=== PATIENT | female | born 1950 | race Caucasian/White ===

== ENCOUNTER → 2019-11-11 14:38 | Outpatient (CLI) | payer BC, SELFPAY ==
--- NOTE | 2019-11-11 14:45 | RAD_ITS ---
STUDY: X-RAY - LUMBAR SPINE REASON FOR EXAM: Female, 69 years old. PAIN LEFT HIP AND LOWER BACK, NKI TECHNIQUE: 3 view(s) of the lumbar spine were obtained. COMPARISON: None FINDINGS: Normal lumbar lordosis. There is no substantial scoliosis. 5 mm of anterolisthesis of L4 on L5. There is multilevel endplate spondylosis of the lumbar vertebrae. There is multi-level degenerative disc disease with multi-level disc space narrowing. Mild loss of height of the L2 vertebral body consistent with a mild compression fracture. This may be acute or chronic and clinical correlation and/or MRI would be useful. The soft tissue structures are unremarkable. RAD/Lumbar Spine 2 or 3 Views IMPRESSION: 1. Mild compression fracture of L2 which may be acute or chronic and clinical correlation or MRI is recommended. 2. Mild diffuse degenerative disc disease with 5 mm of anterolisthesis of L4 on L5. Electronically Signed: Lucas March MD at 9:02 EST Tel , Service support ,
--- NOTE | 2019-11-11 14:50 | RAD_ITS ---
STUDY: X-RAY - PELVIS AND LEFT HIP REASON FOR EXAM: Female, 69 years old. PAIN LEFT HIP AND LOWER BACK, NKI TECHNIQUE: 3 views of the pelvis and hip. COMPARISON: None. FINDINGS: There is a non-specific bowel gas pattern. Normal visualized soft tissue structures. Normal bilateral iliac wings, sacroiliac joints and visualized sacrum. Normal bilateral superior and inferior pubic rami. Normal pubic symphysis. Normal bilateral ischial tuberosities. Normal visualized femoral head. Normal acetabulum. Normal hip joint. RAD/HIP, UNI W/ Pelvis 2-3 Views IMPRESSION: Normal x-ray examination of the pelvis and hip. Electronically Signed: Lucas March MD at 9:04 EST Tel , Service support ,
== END ==
PROVIDERS: PCP Family Medicine; Referring Provider Anesthesiology Pain Medicine; Visit Provider Anesthesiology Pain Medicine
DX: M25.559 Pain in unspecified hip (principal); M54.9 Dorsalgia, unspecified
CPT/HCPCS: 72100; 73502

== ENCOUNTER → 2021-04-20 15:57 | Outpatient (CLI) | payer MEDICARE, SELFPAY ==
--- NOTE | 2021-04-20 16:28 | RAD_ITS ---
STUDY: X-RAY - THORACIC SPINE REASON FOR EXAM: Female, 71 years old. BACK PAIN TECHNIQUE: 3 view(s) of the thoracic spine were obtained. COMPARISON: None. FINDINGS: There is an increase in the normal thoracic kyphosis. There is no substantial scoliosis. There is demineralization of the thoracic spine with endplate spondylosis. 10% loss of height of the T10 vertebrae. There is multilevel disc space narrowing of the thoracic spine. Atherosclerotic calcification of the aortic arch. RAD/Thoracic Spine 2 Views IMPRESSION: Demineralization and degenerative changes. 10% loss of height of the superior endplate of the T10 vertebrae. Electronically Signed: Rene Talbert MD at 15:29 EDT , Service support ,
== END ==
PROVIDERS: PCP Family Medicine; Referring Provider Anesthesiology Pain Medicine; Visit Provider Anesthesiology Pain Medicine
DX: M54.9 Dorsalgia, unspecified (principal)
CPT/HCPCS: 72070

== ENCOUNTER → 2021-06-16 13:26 | Outpatient (CLI) | payer MEDICARE, SELFPAY ==
[2021-06-16 16:23] LABS: Amphetamine Urine VISTA NEGATIVE (<1000 ng/mL); Barbiturate Urine VISTA NEGATIVE (< 200 ng/mL); Benzodiazepine Urine VISTA NEGATIVE (< 200 ng/mL); Cocaine Urine VISTA NEGATIVE (< 300 ng/mL); Ecstacy Urine VISTA NEGATIVE (< 500 ng/mL); Methadone Urine VISTA NEGATIVE (< 300 ng/mL); PCP Urine VISTA NEGATIVE (< 25 ng/mL); THC Urine VISTA NEGATIVE (< 50 ng/mL); Vista UDS pH Range 7
== END ==
PROVIDERS: PCP Family Medicine; Referring Provider Anesthesiology Pain Medicine; Visit Provider Anesthesiology Pain Medicine
DX: F11.20 Opioid dependence, uncomplicated (principal)
CPT/HCPCS: 80307

== ENCOUNTER 2021-08-25 10:04 | Emergency (ER) | payer MEDICARE, SELFPAY ==
[2021-08-25 10:05] VITALS: BP 130/54; PULSE 55; RESP 16; TEMP 36.6; O2SAT 95; BMI 26.4
--- NOTE | 2021-08-25 10:16 | ED.RN ---
[facility] CALLED TO FAX PRESCRITION LIST
--- NOTE | 2021-08-25 10:26 | EKG12_ITS ---
Test Reason : CHEST PAIN Blood Pressure : / mmHG Vent. Rate : 058 BPM Atrial Rate : 058 BPM P-R Int : 130 ms QRS Dur : 080 ms QT Int : 404 ms P-R-T Axes : 044 018 034 degrees QTc Int : 396 ms Sinus bradycardia Otherwise normal ECG Confirmed by REBA PARRA, INGRIS ([id number]), non linear editor ALLISON MELENDEZ ([id number]) on 08/30/2021 1:07:13 P M Referred By: ABRIL Confirmed By:ZACKERY BRITTON MD
--- NOTE | 2021-08-25 10:26 | EKG12_ITS ---
Test Reason : CHEST PAIN Blood Pressure : / mmHG Vent. Rate : 057 BPM Atrial Rate : 057 BPM P-R Int : 130 ms QRS Dur : 076 ms QT Int : 406 ms P-R-T Axes : 045 012 028 degrees QTc Int : 395 ms Sinus bradycardia Otherwise normal ECG When compared with ECG of 17-JUN-2013 10:47, No significant change was found Confirmed by RAGHAVENDRA PARRA, JEANNETTE ([id number]), editor greeting card ALLISON MELENDEZ ([id number]) on 08/31/2021 2:02:05 PM Referred By: ABRIL Confirmed By:JEANNETTE MABRY MD
--- NOTE | 2021-08-25 10:48 | EDS_ITS ---
HPI History of Present Illness Chief Complaint: Back Informant: patient Onset/Context/Timing Onset: Yesterday Injury: bending Timing: Continuous Quality: Sharp Location: Lumbar Current Severity: Mild Maximum Severity: Moderate Worsened by: improves with Movement Relieved by: Nothing Associated Symptoms Associated Symptoms: Negative for Numbness, Tingling, Radiation to Right Leg, Radiation to Left Leg, Fever, Abdominal Pain, Dysuria, Unable to Ambulate, Unable to Transfer, Urinary Retention, Urinary Incontinence, Constipation and Fecal Incontinence Narrative Narrative: 71-year-old female history of compression fractures. Sees Dr. Gallego for chronic pain management, osteoporosis and arthritis. States she was in the shower yesterday and lifted her leg and felt a pop in her lower back. Now having pain over her left iliac crest region. No falls or trauma. She denies any numbness, weakness bowel or bladder incontinence or retention. No fever. She is on no blood thinners. Prior similar symptoms: Yes Recent Illness/Hospitalization: No PFSH PFSH Medical History Osteoporosis Home Medications atorvastatin 10 mg PO DAILY 08/25/21 [History Last Taken Unknown] hydrochlorothiazide 25 mg PO DAILY 08/25/21 [History Last Taken Unknown] magnesium oxide 400 mg PO DAILY 08/25/21 [History Last Taken Unknown] oxycodone-acetaminophen 1 tab PO BID PRN 08/25/21 [History Last Taken Unknown] Allergy/AdvReac Type Severity Reaction Status Date / Time acetaminophen [From Vicodin] Allergy PALPITATION Verified 08/25/21 10:09 S codeine Allergy PALPITATION Verified 08/25/21 10:09 S hydrocodone [From Vicodin] Allergy PALPITATION Verified 08/25/21 10:09 S hydromorphone [From Dilaudid] AdvReac PALPITATION Verified 08/25/21 11:38 S Social History Smoking Status: Current every day smoker tobacco type: cigarettes ROS ROS ED ROS Narrative Denies recent illness. Review of Systems ROS Unobtainable: Denies due to encephalopathy Constitutional Constitutional ED: Denies chills or fever(s) Eyes Eyes: Denies change in vision ENT ENT ED: Denies ear pain or sore throat Cardiovascular Cardiovascular: Denies chest pain Respiratory/Chest Respiratory/Chest: Denies dyspnea or sputum Gastrointestinal Gastrointestinal: Denies abdominal pain, diarrhea, nausea or vomiting Genitourinary Genitourinary ED: Denies dysuria Musculoskeletal Musculoskeletal: Reports back pain; Denies myalgias Integumentary Denies rash Neurologic Neurologic: Denies headache(s) Psychiatric Psychiatric: Denies depression Endocrine Endocrinology: Denies polyuria Hematologic/Lymphatic Hematologic/Lymphatic: Denies easy bruising Allergic/Immunologic Allergic/Immunologic ED: Denies urticaria EXAM Physical Exam Narrative Exam Narrative: Female vital signs stable afebrile. No distress. HEENT exam unremarkable. Neck nontender no lymphadenopathy. Lungs clear to auscultation bilaterally. Heart regular rhythm no murmur. Abdomen soft nontender normal bowel sounds no peritoneal signs. No pulsatile mass. Moving all 4 extremities. Neurovascular intact. 5-5 medical practice manager strength. Dorsi plantarflexion intact. She can lift either leg off the bed without any difficulty. There is no cauda equina. No saddle anesthesia. Negative straight leg raise. She has normal medial thigh sensation. Normal dorsi plantarflexion 5 out of 5 motor strength. Back spine is nontender she has tenderness over her right iliac crest. Neurologically she is awake alert with no focal motor or sensory deficits. Normal motor strength. Const Vital Signs: 08/25/21 10:05 08/25/21 12:18 Temperature 97.9 F Temperature Source Oral Pulse Rate 55 L 58 L Respiratory Rate 16 16 Blood Pressure 130/54 H 96/42 L Blood Pressure Mean 79 60 Pulse Ox 95 94 Oxygen Delivery Method Room Air Room Air Positive well nourished and well developed; Negative for obese, cachectic, contractures or unkempt General Appearance ED: well developed and NAD; Negative for unkempt, cachectic, contractures or pallor Nutritional Appearance: Negative for cachectic or obese HEENT Reports moist mucous membranes Negative for trauma or tenderness Eyes PERRL and EOMs intact bilaterally Neck no lymphadenopathy, supple and no JVD General: Negative for tenderness Resp normal respiratory effort and clear to auscultation bilaterally Effort and Inspection: Negative for pain with movement or other Auscultation: Negative for rales or rhonchi Cardio regular rate, regular rhythm, S1 normal heart sound, S2 normal heart sound and no murmurs GI normal to inspection, nondistended, normoactive bowel sounds, soft to palpation, non-tender, non-distended and no masses Inspection: Negative for abdominal distention Auscultation: Negative for hyperactive bowel sounds Palpation: Negative for tender, guarding or rebound tenderness present Back/Spine normal to inspection and no thoracic nor lumbar tenderness General Back: Negative for CVA tenderness or scar(s) Cervical Spine: Negative for cervical spine tenderness and Negative for paracervical muscle tenderness Thoracic Spine / Upper Back: Negative for paraspinal muscle tenderness Lumbar Spine / Lower Back: straight leg raise negative bilaterally; Negative for straight leg raise positive right Extremity normal to inspection General Extremety ED: Negative for edema or tenderness General Extremity: Negative for edema Psych mental status grossly normal Appearance: Negative for unkempt Attitude: No agitated Mood & Affect: Negative for depressed or tearful Skin no rashes or lesions noted and no wounds General Skin Exam: Negative for jaundice or pallor MDM MDM MDM Narrative Medical decision making narrative: 71-year-old female complaint low back pain. She is neurovascularly intact with normal motor strength sensation both upper and lower extremities. No cauda equina. She will be treated with morphine IV and Zofran. X-ray of her lumbar spine will be obtained. Nurses obtain EKG this patient was chaining of chest discomfort after she was treated with pain meds by the squad. She states this is happened before. This does not sound cardiac in nature. Repeat exam at 1:53 PM. Patient doing well. Much improved. She is comfortable being discharged home. Radiography Diagnostic Testing: Clinical Impression(s) from Imaging Studies Lumbar Spine X-Ray 08/25/21 11:10 IMPRESSION: Degenerative changes of the spine, as detailed above. Stable loss of height of the superior endplate of the L2 vertebrae. Electronically Signed: Rene Talbert MD at 12:06 EST , Service support , LS-spine x-ray interpreted by myself and radiologist shows chronic changes of the lumbar spine. Chronic left-sided L2 but no acute process. Rhythm Strip Rhythm Strip: Sinus Rhythm Rate: 58 Ectopy: None EKG Initial EKG: Attestation: I personally reviewed and interpreted this EKG as follows: Interpretation: No Acute Injury Pattern and Sinus Bradycardia Comments: Sinus bradycardia rate of 58 no acute signs of IL or ischemia. Discharge Plan Triage Chief Complaint: Back ED Provider: Tom Zamora Dx/Rx/DC Orders Clinical Impression: Acute exacerbation of chronic low back pain, Compression fx, lumbar spine Instructions: ED Chronic Pain Prescriptions: No Action atorvastatin 10 mg tablet 10 mg PO DAILY RF: 0 oxycodone-acetaminophen 5-325 mg tablet 1 tab PO BID PRN (Reason: Pain) RF: 0 magnesium oxide 400 mg (241.3 mg magnesium) tablet 400 mg PO DAILY RF: 0 hydrochlorothiazide 25 mg tablet 25 mg PO DAILY RF: 0 Primary Care Provider: Bart Waters Referrals: Lisa Gallego MD [STAFF PHYSICIAN] - 3-5 Days if not improving Bart Waters MD [Primary Care Provider] - 3-5 Days if not improving Activity Restrictions/Additional Instructions: Continue your pain medications at home. Follow-up with your primary care physician or Dr. Gallego in the next several days if not improving. Return emergency department if feeling worse. Disposition Disposition: Home, Self Care
--- NOTE | 2021-08-25 11:10 | RAD_ITS ---
STUDY: X-RAY - LUMBAR SPINE REASON FOR EXAM: Female, 71 years old. Atraumatic pain TECHNIQUE: 5 view(s) of the lumbar spine were obtained. COMPARISON: Comparison is made with prior study dated 11/11/2019. FINDINGS: Normal lumbar lordosis. There is no substantial scoliosis. There is a normal alignment of the vertebrae. There is multilevel endplate spondylosis of the lumbar vertebrae. There is multi-level degenerative disc disease with multi-level disc space narrowing. Facet joint osteoarthritis. Stable loss of height of the superior endplate of the L2 vertebra. There is atherosclerotic calcification of the abdominal aorta without a demonstrated aneurysm. RAD/L/S Spine Min 4 Views IMPRESSION: Degenerative changes of the spine, as detailed above. Stable loss of height of the superior endplate of the L2 vertebrae. Electronically Signed: Rene Talbert MD at 12:06 EST , Service support ,
[2021-08-25] MEDS: morphine 8 MG/ML Syringe 6 MG IV (11:35)
[2021-08-25] MEDS: Ondansetron 4 MG/2 ML Vial IV (11:36)
[2021-08-25 12:18] VITALS: BP 96/42; PULSE 58; RESP 16; O2SAT 94
[2021-08-25 14:09] VITALS: BP 108/57; PULSE 57; RESP 16; O2SAT 95
== END 2021-08-25 14:10 | disposition home or self-care (01) ==
PROVIDERS: Emergency Provider Emergency Medicine; PCP Family Medicine
DX: M54.50 Low back pain, unspecified (principal); G89.29 Other chronic pain; M48.56XA Collapsed vertebra, not elsewhere classified, lumbar region, initial encounter for fracture; M47.816 Spondylosis without myelopathy or radiculopathy, lumbar region; F17.210 Nicotine dependence, cigarettes, uncomplicated; Z79.899 Other long term (current) drug therapy; M81.0 Age-related osteoporosis without current pathological fracture
CPT/HCPCS: 72110; 93005; 96374; 96375; 99285; A4216; J2405

== ENCOUNTER 2021-09-01 21:41 | Emergency (ER) | payer MEDICARE, SELFPAY ==
[2021-09-01 21:42] VITALS: BP 137/70; PULSE 74; PULSE 76; RESP 18; RESP 19; TEMP 37.1; O2SAT 94; BMI 26.4
--- NOTE | 2021-09-01 22:14 | EX.ED.DYSGE1 ---
HPI History of Present Illness Chief Complaint: Back Informant: patient Narrative Narrative: Patient presents with back pain. She does have a long history of osteoporosis and back pain. Until 3 weeks ago she took a total of 1 oxycodone tablet a day. She will take half in the morning and half in the evening. I think these were 5 mg. 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 She has had increasing pain since then. She was seen here about a week ago. X-rays were done. These showed a stable prior compression fracture. She was treated with meds here and improved. She did follow-up with her pain management physician. She sees Dr. Gallego. She is now taking oxycodone tablet 1 every 6 hours. She states is just not controlling her pain. Her pain is mostly right buttock that wraps around the lateral aspect of the right thigh and then comes to the anterior thigh but stops well above her knee. She does not have weakness. She has no bowel or bladder dysfunction. No saddle anesthesia. No fevers or chills. She has had no repeat injury or fall. Earlier today she had an injection done. She states it did improve the symptoms slightly but only for about an hour. Now the pain is back again. She states she has not gotten much sleep in 8 days because of this significant pain. Nothing consistently makes it better or worse. [facility] Medical History HLD (hyperlipidemia) HTN (hypertension) Osteoporosis Home Medications atorvastatin 10 mg PO DAILY 08/25/21 [History Last Taken Unknown] hydrochlorothiazide 25 mg PO DAILY 08/25/21 [History Last Taken Unknown] magnesium oxide 400 mg PO DAILY 08/25/21 [History Last Taken Unknown] metoprolol tartrate 50 mg PO DAILY 09/01/21 [History Last Taken Unknown] omeprazole 20 mg PO DAILY 09/01/21 [History Last Taken Unknown] oxycodone-acetaminophen 1 tab PO Q6H PRN 09/01/21 [History Last Taken Unknown] sertraline 50 mg PO DAILY 09/01/21 [History Last Taken Unknown] diazepam [Valium] 2 mg PO TID PRN 3 Days #9 tab 09/02/21 [Rx Last Taken Unknown] Allergy/AdvReac Type Severity Reaction Status Date / Time acetaminophen [From Vicodin] Allergy PALPITATION Verified 09/01/21 21:41 S codeine Allergy PALPITATION Verified 09/01/21 21:41 S hydrocodone [From Vicodin] Allergy PALPITATION Verified 09/01/21 21:41 S hydromorphone [From Dilaudid] AdvReac PALPITATION Verified 09/01/21 21:41 S Surgical History History of appendectomy History of cholecystectomy History of hysterectomy History of left nephrectomy History of tonsillectomy Social History Smoking Status: Current every day smoker tobacco type: cigarettes ROS ROS ED Constitutional Constitutional ED: Denies chills or fever(s) ENT ENT ED: Denies rhinorrhea Cardiovascular Cardiovascular: Denies chest pain or palpitations Respiratory/Chest Respiratory/Chest: Denies cough or dyspnea Gastrointestinal Gastrointestinal: Denies abdominal pain, constipation, diarrhea, nausea or vomiting Genitourinary Genitourinary ED: Denies dysuria, hematuria or urinary frequency Musculoskeletal Musculoskeletal: Reports back pain; Denies neck pain Integumentary Denies rash Neurologic Neurologic: Denies headache(s), paresthesias or weakness Endocrine Endocrinology: Denies polydipsia or polyuria Allergic/Immunologic Allergic/Immunologic ED: Denies urticaria EXAM Physical Exam Const Vital Signs: 09/01/21 21:42 09/01/21 22:34 09/02/21 01:27 Temperature 98.7 F Temperature Source Oral Pulse Rate 74 82 78 Respiratory Rate 18 17 16 Blood Pressure 137/70 H 137/66 H Blood Pressure Mean 92 89 Pulse Ox 94 95 98 Oxygen Delivery Method Room Air Room Air Room Air 09/02/21 03:00 09/02/21 05:00 Temperature Temperature Source Pulse Rate Respiratory Rate 15 16 Blood Pressure Blood Pressure Mean Pulse Ox Oxygen Delivery Method Patient is lying on her right side. She states this helps a bit. She does look uncomfortable. Positive well nourished and well developed General Appearance ED: well developed HEENT Negative for trauma or tenderness Eyes EOMs intact bilaterally General Eye ED: Negative for pale conjunctiva or scleral icterus Neck No no JVD Chest Wall inspection of chest normal Resp normal respiratory effort and clear to auscultation bilaterally Cardio regular rate, regular rhythm and no murmurs GI normal to inspection, nondistended, normoactive bowel sounds, non-tender and non-distended Palpation: soft Back/Spine no CVA tenderness Back/Spine Narrative: Patient has a Band-Aid in the right paraspinal area at approximately L2 or 3. She really does not have tenderness there. Most of her tenderness is down in the right buttock/sciatic notch area. I see no rashes or vesicles. Extremity normal to inspection Extremity Narrative: No sign of extremity weakness. No rashes or swelling. Range of motion is intact although it hurts for her to move. General Extremety ED: Negative for edema or tenderness General Extremity: Negative for edema Neuro oriented x3 and no sensory deficits noted Neuro Narrative: Patient has 2+ bilateral patellar reflex and 1+ bilateral Achilles. No sign of sensory change. No sign of weakness. Sensorium / Orientation: alert Motor Exam: strength 5/5 throughout Skin no rashes or lesions noted and no wounds MDM MDM MDM Narrative Medical decision making narrative: I looked at the patient's LS spine x-ray. To me it looks like there was a change in L3. For this reason I did order the CT. This does show stable L2 compression fracture but there does appear to be an acute compression fracture of L3. This is stable compared to the one last week but new since November of last year. I rechecked the patient. She is feeling markedly better. She got some rest. She would like to try to go home. I explained that I can write for some Valium because I think it helped her but I am concerned about breaking her pain contract. We can write for it and then she can contact her pain management physician to make sure he is okay with that. Patient will be watched here longer tonight. Patient has nobody can come get her in the middle of the night. Patient has gotten some sleep here tonight. We checked her in the morning. She still looks much better. She is very appreciative because she got sleep for the first time in over a week. I explained again that prescribing Valium might cause problems with her pain contract. Although it is not further narcotic it is a controlled substance. I do not in any way think this patient is seeking narcotics. I did do an online prescribing report that shows prescriptions through a single provider. But this patient is also having very significant symptoms that are hard to manage. Because of the night time and the holiday weekend I am not able to get hold of her normal prescriber. I recommend she try to contact him during daytime hours. If she can tolerate the pain now adjust her oral meds that is good. If not she has the option of adding Valium that seemed to really relax her and help her symptoms. She is calling her sister for a ride at this time. Radiography Diagnostic Testing: Clinical Impression(s) from Imaging Studies Lumbar Spine X-Ray 09/01/21 22:19 IMPRESSION: Stable degenerative disc disease and chronic mild wedge deformities. No significant interval change. at 2302 Reported and signed by: Gus Pak MD Electronically Signed: Gus Pak MD at 23:01 EST Tel , Service support , Lumbar Spine CT 09/01/21 22:42 IMPRESSION: Acute descending acute compression fracture of L3, stable compared to 08/25/21 but new since 11/11/19 lumbar spine series. Stable chronic L2 compression fracture. Lumbar stenosis at L2-3 and L4-5. Individualized dose optimization techniques were used for this CT. at 2335 Reported and signed by: Gus Pak MD Electronically Signed: Gus Pak MD at 23:34 EST Tel , Service support , Discharge Plan Triage Chief Complaint: Back ED Provider: Claude Christie Dx/Rx/DC Orders Clinical Impression: Acute lumbar back pain, Closed compression fracture of lumbar vertebra Instructions: ED Fracture, Vertebral Compression Prescriptions: New diazepam [Valium] 2 mg tablet 2 mg PO TID PRN (Reason: muscle spasm) 3 Days Qty: 9 RF: 0 No Action atorvastatin 10 mg tablet 10 mg PO DAILY RF: 0 magnesium oxide 400 mg (241.3 mg magnesium) tablet 400 mg PO DAILY RF: 0 hydrochlorothiazide 25 mg tablet 25 mg PO DAILY RF: 0 metoprolol tartrate 50 mg tablet 50 mg PO DAILY RF: 0 omeprazole 20 mg capsule,delayed release(DR/EC) 20 mg PO DAILY RF: 0 oxycodone-acetaminophen 7.5-325 mg tablet 1 tab PO Q6H PRN (Reason: Pain) RF: 0 sertraline 50 mg tablet 50 mg PO DAILY RF: 0 Primary Care Provider: Bart Waters Referrals: Lisa Gallego MD [STAFF PHYSICIAN] - As soon as possible Bart Waters MD [Primary Care Provider] - As soon as possible Activity Restrictions/Additional Instructions: Dr. Gallego today to check with him regarding Valium prescription Disposition Disposition: Home, Self Care
--- NOTE | 2021-09-01 22:19 | RAD_ITS ---
HISTORY: pain EXAMINATION/TECHNIQUE: XR Spine Lumbar 2 or 3 Views: 2 views COMPARISON: 08/25/21 FINDINGS: VERTEBRAE: Stable mild wedge deformities of L2 and L3. No new compression fracture. No spondylolisthesis. Preservation of the normal lumbar lordosis. DISCS: Stable degenerative disc space narrowing at L2-3. INCLUDED ABDOMEN: Included bowel gas pattern is non-obstructive. RAD/Lumbar Spine 2 or 3 Views IMPRESSION: Stable degenerative disc disease and chronic mild wedge deformities. No significant interval change. at 2302 Reported and signed by: Gus Pak MD Electronically Signed: Gus Pak MD at 23:01 EST Tel , Service support ,
[2021-09-01] MEDS: diazePAM 5 MG Tablet PO (22:30)
[2021-09-01] MEDS: Morphine 4 MG/ML Syringe IM (22:31)
[2021-09-01 22:34] VITALS: BP 137/66; PULSE 82; RESP 17; O2SAT 95
--- NOTE | 2021-09-01 22:42 | CT_ITS ---
HISTORY: pain/trauma. ?new/worsening fracture L3 EXAMINATION: CT Spine Lumbar W/O Contrast Injection TECHNIQUE: Helically acquired images were obtained of the lumbar spine. 2D reformats were reviewed. A radiation dose optimization technique was used for this scan. IV Contrast dosage and agent: None. COMPARISON: Lumbar spine series 11/11/19, 08/25/21 FINDINGS: VERTEBRAE: Chronic appearing mild wedge deformity of L2 involving the superior endplate. Mild wedge deformity of L3 involving the superior endplate with acute appearing cortical interruptions, fracture not present on the lumbar spine series of 11/11/19. Mild retropulsion of the posterior fragment from the superior endplate. Lumbar lordosis is normal. Alignment anatomic DISCS and SPINAL CANAL: Loss of normal disc space height at L3-4. Lumbar stenosis at L2-3 and L4-5. VISUALIZED ABDOMEN: Abdominal aorta is not dilated. There is no retroperitoneal adenopathy. CT/Spine Lumbar without Contrast IMPRESSION: Acute descending acute compression fracture of L3, stable compared to 08/25/21 but new since 11/11/19 lumbar spine series. Stable chronic L2 compression fracture. Lumbar stenosis at L2-3 and L4-5. Individualized dose optimization techniques were used for this CT. at 2335 Reported and signed by: Gus Pak MD Electronically Signed: Gus Pak MD at 23:34 EST Tel , Service support ,
[2021-09-02 01:27] VITALS: PULSE 78; RESP 16; O2SAT 98
[2021-09-02] MEDS: Morphine 4 MG/ML Syringe IM (02:43)
[2021-09-02 03:00] VITALS: RESP 15
[2021-09-02 05:00] VITALS: RESP 16
--- NOTE | 2021-09-02 06:57 | NURSING ---
PATIENT IS WAITING [employer] BACK FROM [place] AND WANTS TO HOLD OFF ON THE PO PAIN MED. UNTIL 20-30 MINUTES BEFORE ARRIVAL TIME OF [facility]. SHE IS AWARE TO PRESS BUTTON WHEN SHE HAS THE UPDATE AND TO TALK TO THE PERSON ON THE INTERCOM WITH TIME AND REQUEST FOR PAIN MED.
[2021-09-02] MEDS: oxyCODONE 5 MG Tablet PO (07:59)
--- NOTE | 2021-09-02 07:59 | ED.RN ---
Pts ride to be here at [phone]. Pt will call out when ride gets here. Pt medicated for pain
== END 2021-09-02 08:41 | disposition home or self-care (01) ==
PROVIDERS: Emergency Provider Emergency Medicine; PCP Family Medicine
DX: M54.50 Low back pain, unspecified (principal); M48.56XA Collapsed vertebra, not elsewhere classified, lumbar region, initial encounter for fracture; M48.061 Spinal stenosis, lumbar region without neurogenic claudication; W11.XXXA Fall on and from ladder, initial encounter; I10 Essential (primary) hypertension; E78.5 Hyperlipidemia, unspecified; F17.210 Nicotine dependence, cigarettes, uncomplicated; Z79.899 Other long term (current) drug therapy
CPT/HCPCS: 72100; 72131; 96372; 99285

== ENCOUNTER 2021-10-04 13:42 | Emergency (ER) | payer MEDICARE, SELFPAY ==
[2021-10-04 13:43] VITALS: BP 129/59; PULSE 65; RESP 18; TEMP 36.2; O2SAT 96; BMI 24.9
--- NOTE | 2021-10-04 15:09 | VDLE_ITS ---
Reason For Study: Swelling RIGHT GSV is normal. CFV is compressible, spontaneous, phasic, competent and demonstrates normal augmentation. FV is compressible, spontaneous, phasic, competent and demonstrates normal augmentation. POP V is compressible, spontaneous, phasic, competent and demonstrates normal augmentation. T/P Trunk is compressible. PTV is compressible. RT PerV is compressible. Nonvascularized structure noted in the right groin that measures 1.75 x 2.40 x 2.89 cm. Procedure This is a venous duplex using B-mode, color flow and spectral Doppler. Exam performed in department. A preliminary report was called and/or faxed to ED. VL/Venous Duplex US, Unilateral Interpretation Summary There is no evidence of left lower extremity deep vein thrombosis. Right great saphenous vein appears patent and compressible segmentally. Right groin non-vascular 1.75 x 2. 4 x 2.89cm structure, clinical correlation indicated Ordering Physician: Tom Zamora Referring Physician: Bart Waters Performed By: Candace Champion RVT
--- NOTE | 2021-10-04 15:10 | EKG12_ITS ---
Test Reason : BACK PAIN Blood Pressure : / mmHG Vent. Rate : 063 BPM Atrial Rate : 063 BPM P-R Int : 128 ms QRS Dur : 072 ms QT Int : 386 ms P-R-T Axes : 035 012 027 degrees QTc Int : 395 ms Normal sinus rhythm Normal ECG Confirmed by JEANNETTE MABRY MD ([id number]), option trader JANY DAO ([id number]) on 10/07/2021 9:13:24 AM Referred By: FAVIOLA Confirmed By:JEANNETTE MABRY MD
--- NOTE | 2021-10-04 15:12 | EDS_ITS ---
HPI History of Present Illness Chief Complaint: Back Informant: patient Onset/Context/Timing Onset: Weeks Context: Gradual Onset Current Severity: Mild Maximum Severity: Moderate Worsened by: improves with Movement Relieved by: Remaining Still Associated Symptoms Associated Symptoms: Radiation to Left Leg; Negative for Numbness, Tingling, Fever, Abdominal Pain, Dysuria, Unable to Ambulate, Unable to Transfer, Urinary Retention, Urinary Incontinence, Constipation and Fecal Incontinence Narrative Narrative: 71-year-old female who had a fall while working on a ladder in her kitchen and had 2 compression fractures in her back. Those were diagnosed here through MRIs. Said she has had basically constant pain since that time. She has been seeing industrial spraypainter Dr. Gallego. Over the last several days she is developed swelling in her right leg. Normally she lives with her sister and cares for her 8-year-old sister but currently she is in a [facility] in [place]. Patient denies any nausea, vomiting, diarrhea or fever. She has never had a blood clot before. Prior similar symptoms: Yes Recent Illness/Hospitalization: No PFSH PFS Medical History HLD (hyperlipidemia) HTN (hypertension) Osteoporosis Home Medications atorvastatin 10 mg PO DAILY 08/25/21 [History Last Taken Unknown] hydrochlorothiazide 25 mg PO DAILY 08/25/21 [History Last Taken Unknown] magnesium oxide 400 mg PO DAILY 08/25/21 [History Last Taken Unknown] metoprolol tartrate 50 mg PO DAILY 09/01/21 [History Last Taken Unknown] omeprazole 20 mg PO DAILY 09/01/21 [History Last Taken Unknown] oxycodone-acetaminophen 1 tab PO Q6H PRN 09/01/21 [History Last Taken Unknown] sertraline 50 mg PO DAILY 09/01/21 [History Last Taken Unknown] diazepam [Valium] 2 mg PO TID PRN 3 Days #9 tab 09/02/21 [Rx Last Taken Unknown] Allergy/AdvReac Type Severity Reaction Status Date / Time acetaminophen [From Vicodin] Allergy PALPITATION Verified 10/04/21 13:43 S codeine Allergy PALPITATION Verified 10/04/21 13:43 S hydrocodone [From Vicodin] Allergy PALPITATION Verified 10/04/21 13:43 S hydromorphone [From Dilaudid] AdvReac PALPITATION Verified 10/04/21 13:43 S Surgical History History of appendectomy History of cholecystectomy History of hysterectomy History of left nephrectomy History of tonsillectomy Social History Smoking Status: Current every day smoker tobacco type: cigarettes ROS ROS ED ROS Narrative Denies. Review of Systems ROS Unobtainable: Denies due to encephalopathy Constitutional Constitutional ED: Denies fever(s) Eyes Eyes: Denies change in vision ENT ENT ED: Denies ear pain Cardiovascular Cardiovascular: Denies chest pain Respiratory/Chest Respiratory/Chest: Denies dyspnea or sputum Gastrointestinal Gastrointestinal: Denies abdominal pain, diarrhea, nausea or vomiting Genitourinary Genitourinary ED: Denies dysuria Musculoskeletal Musculoskeletal: Reports back pain; Denies myalgias Integumentary Denies rash Neurologic Neurologic: Denies headache(s) Psychiatric Psychiatric: Denies depression Endocrine Endocrinology: Denies polyuria Hematologic/Lymphatic Hematologic/Lymphatic: Denies easy bruising Allergic/Immunologic Allergic/Immunologic ED: Denies urticaria EXAM Physical Exam Narrative Exam Narrative: 41-year-old female vital signs are stable afebrile does not look septic toxic she is in no distress. Lying in bed. HEENT exam unremarkable. Atraumatic. Moist mucous memories. Neck nontender. Lungs clear to auscultation bilaterally. Heart regular rate and rhythm no murmur. Chest wall nontender. Abdomen soft nontender. Pelvic girdle intact. Moving all 4 extremities. Normal motor strength. No deformities. She has trace edema in the left leg 1+ pitting edema in the right leg. No calf tenderness. Neurologically she is awake and alert with no focal motor deficits. She has back pain in the lower back with any type of movement. There is no ecchymosis or bruising redness or warmth to her back. Const Vital Signs: 10/04/21 13:43 10/04/21 17:12 Temperature 97.1 F L Temperature Source Temporal Pulse Rate 65 76 Respiratory Rate 18 16 Blood Pressure 129/59 H Blood Pressure Mean 82 Pulse Ox 96 97 Oxygen Delivery Method Room Air Room Air Positive well nourished and well developed; Negative for obese, cachectic, contractures or unkempt General Appearance ED: well developed and NAD; Negative for unkempt, cachectic, contractures or pallor Nutritional Appearance: Negative for cachectic or obese HEENT Reports moist mucous membranes Negative for trauma or tenderness Eyes PERRL and EOMs intact bilaterally Neck no lymphadenopathy, supple and no JVD General: Negative for tenderness Resp normal respiratory effort and clear to auscultation bilaterally Effort and Inspection: Negative for pain with movement or other Auscultation: Negative for rales or rhonchi Cardio regular rate, regular rhythm, S1 normal heart sound, S2 normal heart sound and no murmurs GI normal to inspection, nondistended, normoactive bowel sounds, soft to palpation, non-tender, non-distended and no masses Inspection: Negative for abdominal distention Palpation: Negative for tender, guarding or rebound tenderness present Back/Spine normal to inspection and no thoracic nor lumbar tenderness General Back: Negative for CVA tenderness or scar(s) Cervical Spine: Negative for cervical spine tenderness and Negative for paracervical muscle tenderness Thoracic Spine / Upper Back: Negative for paraspinal muscle tenderness Extremity Negative for normal to inspection Extremity Narrative: Trace edema left leg 1+ pitting edema right leg no calf tenderness or cords. General Extremety ED: Yes edema; Negative for tenderness General Extremity: edema Neuro oriented x3 and no sensory deficits noted Sensorium / Orientation: alert; Negative for confused, lethargic or stuporous Motor Exam: strength 5/5 throughout Psych mental status grossly normal Appearance: Negative for unkempt Attitude: No agitated and No other Mood & Affect: Negative for depressed or tearful Skin no rashes or lesions noted and no wounds General Skin Exam: Negative for jaundice or pallor Rashes: No rashes noted MDM MDM MDM Narrative Medical decision making narrative: 71-year-old acute on chronic back pain with right leg swelling. I think it is unlikely to be a DVT but ultrasound to be obtained. I am getting screening labs. She will be given oxycodone for her pain. Patient was treated with a [place] for pain. On repeat exam at 5:55 PM patient is doing well. She is sitting up right in a chair alongside the bed. She understands she is going to have some chronic pain issues due to the compression fractures in her spine. She is okay with being discharged home and following up with her primary care physician and her industrial spraypainter. She has pain medications at home. Lab Data Attestation: I reviewed the patient's lab results. Lab results narrative: CBC shows a white count 9.8 hemoglobin 12.9 platelets of 409. Unremarkable CBC. Is show a chloride of 110. Gap of 5 normal BUN and creatinine. Normal liver enzymes. Venous ultrasound of her right leg shows no DVT as read by Óscar Larry. Labs: Laboratory Results - last 24 hr 10/04/21 10/04/21 15:30 15:30 WBC 9.8 RBC 4.00 L Hgb 12.9 Hct 39.3 MCV 98.3 MCH 32.3 H MCHC 32.8 RDW Std Deviation 58.9 H RDW Coeff of Ema 16.0 H Plt Count 409 MPV 9.1 Immature Gran % (Auto) 0.200 Neut % (Auto) 59.5 Lymph % (Auto) 32.0 [place] % (Auto) 5.3 Eos % (Auto) 2.7 Baso % (Auto) 0.3 Absolute Neuts (auto) 5.8 Absolute Lymphs (auto) 3.13 Nucleated RBC % 0 Sodium 139 Potassium 4.1 Chloride 110 H Carbon Dioxide 24.0 Anion Gap 5 BUN 14 Creatinine 0.74 Estim Creat Clear Calc 40.07 Est GFR (MDRD) Af Amer 99 Est GFR (MDRD) Non-Af 82 BUN/Creatinine Ratio 18.8 Glucose 98 Calcium 9.1 Total Bilirubin 0.40 AST 13 L ALT 15 Alkaline Phosphatase 90 Total Protein 6.9 Albumin 3.0 L Globulin 3.9 Albumin/Globulin Ratio 0.8 L Radiography Diagnostic Testing: Clinical Impression(s) from Imaging Studies Venous Doppler Study 10/04/21 15:09 Interpretation Summary There is no evidence of left lower extremity deep vein thrombosis. Right great saphenous vein appears patent and compressible segmentally. Right groin non-vascular 1.75 x 2.4 x 2.89cm structure, clinical correlation indicated Ordering Physician: Tom Zamora Referring Physician: Bart Waters Performed By: Candace Champion RVT Rhythm Strip Rhythm Strip: Sinus Rhythm Rate: 63 Ectopy: None EKG Initial EKG: Attestation: I personally reviewed and interpreted this EKG as follows: Interpretation: Sinus Rhythm Comments: Normal sinus rhythm rate of 63 no acute signs of VA or ischemia. Discharge Plan Triage Chief Complaint: Back ED Provider: Tom Zamora Dx/Rx/DC Orders Clinical Impression: Edema of right lower extremity, Acute exacerbation of chronic low back pain, History of compression fracture of spine Instructions: ED Chronic Pain Prescriptions: No Action atorvastatin 10 mg tablet 10 mg PO DAILY RF: 0 magnesium oxide 400 mg (241.3 mg magnesium) tablet 400 mg PO DAILY RF: 0 hydrochlorothiazide 25 mg tablet 25 mg PO DAILY RF: 0 metoprolol tartrate 50 mg tablet 50 mg PO DAILY RF: 0 omeprazole 20 mg capsule,delayed release(DR/EC) 20 mg PO DAILY RF: 0 oxycodone-acetaminophen 7.5-325 mg tablet 1 tab PO Q6H PRN (Reason: Pain) RF: 0 sertraline 50 mg tablet 50 mg PO DAILY RF: 0 diazepam [Valium] 2 mg tablet 2 mg PO TID PRN (Reason: muscle spasm) 3 Days Qty: 9 RF: 0 Primary Care Provider: Bart Waters Referrals: Bart Waters MD [Primary Care Provider] - As soon as possible Activity Restrictions/Additional Instructions: Follow-up with both Dr. Waters and Dr. Gallego for further evaluation and management of your chronic pain. Today there were no signs of a blood clot in your right leg. Elevate the leg to decrease the swelling. Disposition Disposition: Home, Self Care
[2021-10-04] MEDS: HYDROcodone Bitartrate/Apap 5/325 Tablet PO (15:23)
[2021-10-04 15:37] LABS: Absolute Lymphocyte Count 3.13 X10^3/uL (0.83-4.51); Absolute Neutrophil Count 5.8 X10^3/uL (2.0-7.7); Basophil# 0.03 X10^3/uL; Basophil% 0.3 % (0-1); Eosinophil# 0.26 X10^3/uL; Eosinophils% 2.7 % (0-5); Hematocrit 39.3 % (37-47); Hemoglobin 12.9 g/dL (12.0-15.0); Lymphocyte # 3.13 X10^3/ul (0.83-4.51); Mean Corp Hgb Conc 32.8 g/dL (32-36); Mean Corpuscular Hgb 32.3 pg (27.0-32.0); Mean Corpuscular Volume 98.3 fL (81-99); Mean Platelet Vol. 9.1 fl (6.2-12.0); Monocyte# 0.52 X10^3/uL; Monocyte% 5.3 % (0-10); NRBC Flagged by Analyzer 0 % (0-5); Neutrophil # 5.83 X10^3/uL (2.7-7.7); Neutrophil % 59.5 % (47-70); Platelet Count 409 K/mm3 (150-450); RBC Distribution Width SD 58.9 fl (35.1-43.9); White Blood Count 9.8 K/mm3 (4.4-11.0)
[2021-10-04 15:52] LABS: ALB/GLOB Ratio 0.8 RATIO (0.9-2.4); AST(SGOT) 13 U/L (15-37); Alanine Aminotransfer ALT/SGPT 15 U/L (13-56); Alkaline Phosphatase 90 U/L (45-117); Anion Gap 5 (5-15); BUN 14 mg/dL (7-18); BUN/Creat Ratio 18.8 RATIO (10-20); Calcium,Total 9.1 mg/dL (8.5-10.1); Chloride 110 mmol/L (98-107); Creatinine, Serum 0.74 mg/dL (0.55-1.02); EST Glomerular Filtration Rate 82 mL/min (>60); Est Glom Filt Rate - Afr Amer 99 mL/min (>60); Estimated Creatinine Clearance 40.07 ml/min; Globulin 3.9 g/dL (2.2-4.2); Glucose 98 mg/dL (74-106); Potassium 4.1 mmol/L (3.5-5.1); Protein, Total 6.9 g/dL (6.4-8.2); Sodium Level 139 mmol/L (136-145)
[2021-10-04 17:12] VITALS: PULSE 76; RESP 16; O2SAT 97
[2021-10-04 18:05] VITALS: BP 142/86; PULSE 69; RESP 18; O2SAT 97
== END 2021-10-04 18:06 | disposition home or self-care (01) ==
PROVIDERS: Emergency Provider Emergency Medicine; PCP Family Medicine
DX: R60.0 Localized edema (principal); M54.50 Low back pain, unspecified; G89.29 Other chronic pain; F17.210 Nicotine dependence, cigarettes, uncomplicated; I10 Essential (primary) hypertension; E78.5 Hyperlipidemia, unspecified; M81.0 Age-related osteoporosis without current pathological fracture
CPT/HCPCS: 80053; 85025; 93005; 93971; 99283; A4216

== ENCOUNTER 2021-10-11 14:24 | Outpatient (CLI) | payer MEDICARE, SELFPAY ==
--- NOTE | 2021-10-11 14:33 | RAD_ITS ---
STUDY: X-RAY - RIGHT KNEE REASON FOR EXAM: Female, 71 years old. KNEE PAIN TECHNIQUE: 2 view(s) of the knee. COMPARISON: None. FINDINGS: Normal visualized distal femur. Normal visualized proximal tibia and fibula. Normal proximal tibiofibular articulation. Normal medial femorotibial compartment. Normal lateral femorotibial compartment. Normal patellofemoral articulation. The soft tissue structures are unremarkable. RAD/Knee 1 or 2 Views IMPRESSION: Normal x-ray examination of the knee. Electronically Signed: Lucas March MD at 17:11 EST Tel , Service support ,
--- NOTE | 2021-10-11 14:33 | RAD_ITS ---
STUDY: X-RAY - LEFT KNEE REASON FOR EXAM: Female, 71 years old. PAIN TECHNIQUE: 2 view(s) of the knee. COMPARISON: None. FINDINGS: Normal visualized distal femur. Normal visualized proximal tibia and fibula. Normal proximal tibiofibular articulation. Normal medial femorotibial compartment. Normal lateral femorotibial compartment. Normal patellofemoral articulation. The soft tissue structures are unremarkable. RAD/Knee 1 or 2 Views IMPRESSION: Normal x-ray examination of the knee. Electronically Signed: Lucas March MD at 17:10 EST Tel , Service support ,
== END 2021-10-11 23:59 | disposition home or self-care (01) ==
LOC: RAD 14:28
PROVIDERS: PCP Family Medicine; Referring Provider Anesthesiology Pain Medicine; Visit Provider Anesthesiology Pain Medicine
DX: M25.569 Pain in unspecified knee (principal)
CPT/HCPCS: 73560

== ENCOUNTER → 2022-08-23 | Outpatient (CLI) | payer MEDICARE, SELFPAY ==
[2022-08-23 16:30] LABS: Amphetamine Urine VISTA NEGATIVE (<1000 ng/mL); Barbiturate Urine VISTA NEGATIVE (< 200 ng/mL); Benzodiazepine Urine VISTA NEGATIVE (< 200 ng/mL); Cocaine Urine VISTA NEGATIVE (< 300 ng/mL); Ecstacy Urine VISTA NEGATIVE (< 500 ng/mL); Methadone Urine VISTA NEGATIVE (< 300 ng/mL); PCP Urine VISTA NEGATIVE (< 25 ng/mL); THC Urine VISTA NEGATIVE (< 50 ng/mL); Vista UDS pH Range 5
== END | disposition home or self-care (01) ==
LOC: LAB 15:40
PROVIDERS: PCP Family Medicine; Visit Provider Anesthesiology Pain Medicine
DX: F11.20 Opioid dependence, uncomplicated (principal)
CPT/HCPCS: 80307

== ENCOUNTER → 2022-12-20 | Outpatient (CLI) | payer MEDICARE, SELFPAY ==
[2022-12-20 13:43] LABS: Amphetamine Urine VISTA NEGATIVE (<1000 ng/mL); Barbiturate Urine VISTA NEGATIVE (< 200 ng/mL); Benzodiazepine Urine VISTA NEGATIVE (< 200 ng/mL); Cocaine Urine VISTA NEGATIVE (< 300 ng/mL); Ecstacy Urine VISTA NEGATIVE (< 500 ng/mL); Methadone Urine VISTA NEGATIVE (< 300 ng/mL); PCP Urine VISTA NEGATIVE (< 25 ng/mL); THC Urine VISTA NEGATIVE (< 50 ng/mL); Vista UDS pH Range 7
== END | disposition home or self-care (01) ==
LOC: LAB 12:36
PROVIDERS: PCP Family Medicine; Referring Provider Anesthesiology Pain Medicine; Visit Provider Anesthesiology Pain Medicine
DX: F11.20 Opioid dependence, uncomplicated (principal)
CPT/HCPCS: 80307

== ENCOUNTER → 2023-07-25 | Outpatient (CLI) | payer MEDICARE, SELFPAY ==
--- NOTE | 2023-07-25 13:34 | RAD_ITS ---
STUDY: X-RAY - THORACIC SPINE REASON FOR EXAM: Female, 73 years old. Spondylosis without myelopathy or radiculopathy, thoracic region TECHNIQUE: 2 view(s) of the thoracic spine were obtained. COMPARISON: None. FINDINGS: Normal kyphosis of the thoracic spine. There is no substantial scoliosis. There is demineralization of the thoracic spine with endplate spondylosis. There is multilevel disc space narrowing of the thoracic spine. No acute fracture, there is a chronic compression fracture at T7 with vertebral planum and a chronic compression fracture at T10 with minimal loss of height. No paraspinal mass or absent pedicle. The compression fracture at T7 is new since the previous study Previous vertebroplasty at L3. The soft tissue structures are unremarkable. RAD/Thoracic Spine 2 Views IMPRESSION: Multilevel degenerative changes with multiple chronic compression fractures, no acute fracture, paraspinal mass or abscess Electronically Signed: Ronnie Busby MD at 17:07 EDT ,
== END | disposition home or self-care (01) ==
PROVIDERS: PCP Family Medicine; Referring Provider Anesthesiology Pain Medicine; Visit Provider Anesthesiology Pain Medicine
DX: M47.814 Spondylosis without myelopathy or radiculopathy, thoracic region (principal); M51.34 Other intervertebral disc degeneration, thoracic region
CPT/HCPCS: 72070

== ENCOUNTER 2024-04-16 09:14 | Emergency (ER) | payer MEDICARE, SELFPAY ==
[2024-04-16 09:14] VITALS: BP 135/78; PULSE 92; RESP 14; TEMP 36.8; O2SAT 94
[2024-04-16 09:17] VITALS: BMI 24.9
--- NOTE | 2024-04-16 11:08 | ED.VIS.BACK ---
HPI History of Present Illness Chief Complaint: Back Narrative Narrative: 74-year-old female presenting with back pain. She does have a history of chronic back pain and sees Dr. Gallego. She states she gets injections every 3 months. She gets prescribed oxycodone 7.5/325 as well. She states that on the fourth she was folding laundry and she sort of bent forward to scoop up the laundry and felt pops in her back. She complains of pain from the lower back to the mid back. She has a history of compression fractures in kyphoplasty. No loss of bladder or bowel control. No saddle anesthesia. Patient can ambulate but has difficulty. [facility] Medical History HTN (hypertension) HLD (hyperlipidemia) Osteoporosis Home Medications ?Medication ?Instructions ?Recorded ?Last Taken ?Type atorvastatin 10 mg tablet 10 mg PO DAILY 08/25/21 Unknown History hydrochlorothiazide 25 mg tablet 25 mg PO DAILY 08/25/21 Unknown History magnesium oxide 400 mg (241.3 mg 400 mg PO DAILY 08/25/21 Unknown History magnesium) tablet metoprolol tartrate 50 mg tablet 50 mg PO DAILY 09/01/21 Unknown History omeprazole 20 mg capsule,delayed 20 mg PO DAILY 09/01/21 Unknown History release oxycodone-acetaminophen 7.5 mg-325 1 tab PO Q6H PRN Pain 09/01/21 Unknown History mg tablet sertraline 50 mg tablet 50 mg PO DAILY 09/01/21 Unknown History diazepam 2 mg tablet (Valium) 2 mg PO TID PRN muscle spasm 3 09/02/21 Unknown Rx days #9 tabs amitriptyline 25 mg tablet 25 mg PO QHS 04/16/24 Unknown History ergocalciferol (vitamin D2) 1,250 1,250 mcg PO QWEEK 04/16/24 Unknown History mcg (50,000 unit) capsule gabapentin 300 mg capsule 300 mg PO 4X/DAY 04/16/24 Unknown History Allergy/AdvReac Type Severity Reaction Status Date / Time acetaminophen (From Vicodin) Allergy PALPITATION Verified 04/16/24 09:15 S codeine Allergy PALPITATION Verified 04/16/24 09:15 S hydrocodone (From Vicodin) Allergy PALPITATION Verified 04/16/24 09:15 S hydromorphone (From Dilaudid) AdvReac PALPITATION Verified 04/16/24 09:15 S Surgical History History of cholecystectomy History of left nephrectomy History of appendectomy History of tonsillectomy History of hysterectomy Social History Smoking Status: Current every day smoker tobacco type: cigarettes ROS ROS ED Constitutional Constitutional ED: Denies chills, fever(s) or sweats Eyes Eyes: Denies blurry vision or change in vision ENT ENT ED: Denies ear pain or sore throat Cardiovascular Cardiovascular: Denies chest pain, palpitations or racing heartbeat Respiratory/Chest Respiratory/Chest: Denies cough, dyspnea or sputum Gastrointestinal Gastrointestinal: Denies abdominal pain, constipation, diarrhea, nausea or vomiting Genitourinary Genitourinary ED: Denies dysuria, hematuria or urinary frequency Musculoskeletal Musculoskeletal: Reports back pain; Denies arthralgias, myalgias or neck pain Integumentary Denies abscess, Abrasions or rash Neurologic Neurologic: Denies headache(s), paresthesias or weakness Psychiatric Psychiatric: Denies anxiety, depression, suicidal ideation or suicidal thoughts Endocrine Endocrinology: Denies polydipsia or polyuria EXAM Physical Exam Const Vital Signs: 04/16/24 09:14 Temperature 98.2 F Temperature Source Temporal Pulse Rate 92 Respiratory Rate 14 Blood Pressure 135/78 H Blood Pressure Mean 97 Pulse Ox 94 Oxygen Delivery Method Room Air Positive well nourished General Appearance ED: NAD HEENT Reports moist mucous membranes Eyes PERRL and EOMs intact bilaterally Resp normal respiratory effort Cardio regular rate and regular rhythm Back/Spine Back/Spine Narrative: Diffuse tenderness to palpation both spinal and paraspinal musculature adjacent to T12-L5. No rashes. No ecchymosis. Extremity normal to inspection General Extremety ED: Negative for edema General Extremity: Negative for edema Neuro oriented x3 and no sensory deficits noted Sensorium / Orientation: alert Psych mental status grossly normal Skin no rashes or lesions noted MDM MDM MDM Narrative Medical decision making narrative: Patient presenting with fairly diffuse back pain. She has history of compression fractures. Differential includes compression fracture, lumbar strain, thoracic strain. Patient medicated for milligrams of IM morphine. X-rays of the lumbar spine and thoracic spine will be obtained. Patient had x-rays of the lumbar spine which show compression deformity at L4 which is new on my interpretation. Thoracic spine does not show anything acute but shows chronic compression fractures on my interpretation. Patient was counseled on findings. She has pain medications for home. She will follow-up with Dr. Gallego. Impression: 1. L4 compression fracture Lab Data Attestation: I reviewed the patient's lab results. Radiography Diagnostic Testing: Clinical Impression(s) from Imaging Studies Lumbar Spine X-Ray 04/16/24 11:16 IMPRESSION: Degenerative changes of the spine, as detailed above. Almost complete compression of the L4 vertebrae as compared to prior study. Prior vertebroplasty of the L3 vertebrae. Electronically Signed: Rene Talbert MD at 11:31 EDT , Thoracic Spine X-Ray 04/16/24 11:16 IMPRESSION: Multilevel degenerative changes and demineralization with chronic compression fractures. Electronically Signed: Rene Talbert MD at 11:29 EDT , Discharge Plan Triage Chief Complaint: Back ED Provider: Bakari Larson Dx/Rx/DC Orders Instructions: ED Fracture, Vertebral Compression Prescriptions: No Action atorvastatin 10 mg tablet 10 mg PO DAILY Patient Comments: take 1 tablet by mouth at bedtime magnesium oxide 400 mg (241.3 mg magnesium) tablet 400 mg PO DAILY Patient Comments: take 1 tablet by mouth once daily hydrochlorothiazide 25 mg tablet 25 mg PO DAILY Patient Comments: take 1 tablet by mouth once daily metoprolol tartrate 50 mg tablet 50 mg PO DAILY Patient Comments: take 1/2 tablet by mouth twice a day omeprazole 20 mg capsule,delayed release(DR/EC) 20 mg PO DAILY Patient Comments: take 1 capsule by mouth once daily oxycodone-acetaminophen 7.5-325 mg tablet 1 tab PO Q6H PRN (Reason: Pain) Patient Comments: take 1 tablet by mouth every 6 hours if needed for severe pain for 7 days sertraline 50 mg tablet 50 mg PO DAILY Patient Comments: take 1 tablet by mouth once daily diazepam [Valium] 2 mg tablet 2 mg PO TID PRN (Reason: muscle spasm) 3 Days Qty: 9 0RF amitriptyline 25 mg tablet 25 mg PO QHS gabapentin 300 mg capsule 300 mg PO 4X/DAY ergocalciferol (vitamin D2) 1,250 mcg (50,000 unit) capsule 1,250 mcg PO QWEEK Primary Care Provider: Bart Waters Referrals: Bart Waters MD [Primary Care Provider] - Print Language: Kiswahili Disposition Disposition: Home, Self Care
[2024-04-16] MEDS: Morphine 4 MG/ML Syringe IM (11:12)
--- NOTE | 2024-04-16 11:16 | RAD_ITS ---
STUDY: X-RAY - LUMBAR SPINE REASON FOR EXAM: Female, 74 years old. Back pain TECHNIQUE: 2 view(s) of the lumbar spine were obtained. COMPARISON: Comparison is made with prior study dated September 01, 2021. FINDINGS: Normal lumbar lordosis. There is no substantial scoliosis. There is a normal alignment of the vertebrae. Prior vertebroplasty of the L3 vertebrae. Almost complete compression of the L4 vertebrae. This is new as compared to prior study. There is multi-level degenerative disc disease with multi-level disc space narrowing. Status post left hip replacement. RAD/Lumbar Spine 2 or 3 Views IMPRESSION: Degenerative changes of the spine, as detailed above. Almost complete compression of the L4 vertebrae as compared to prior study. Prior vertebroplasty of the L3 vertebrae. Electronically Signed: Rene Talbert MD at 11:31 EDT ,
--- NOTE | 2024-04-16 11:16 | RAD_ITS ---
STUDY: X-RAY - THORACIC SPINE REASON FOR EXAM: Female, 74 years old. Chronic back pain. TECHNIQUE: 2 view(s) of the thoracic spine were obtained. COMPARISON: Comparison is made with prior study dated July 25, 2023. FINDINGS: There is an increase in the normal thoracic kyphosis. There is no substantial scoliosis. There is demineralization of the thoracic spine with endplate spondylosis. Almost complete collapse of the T7 vertebrae. Stable loss of height of the superior endplate of the T10 vertebrae. There is multilevel disc space narrowing of the thoracic spine. Previous vertebroplasty of the L3 vertebrae. Atherosclerotic calcification of the aortic arch. RAD/Thoracic Spine 3 Views IMPRESSION: Multilevel degenerative changes and demineralization with chronic compression fractures. Electronically Signed: Rene Talbert MD at 11:29 EDT ,
[2024-04-16 13:14] VITALS: BP 130/62; PULSE 80; RESP 16; TEMP 36.6; O2SAT 98; O2SAT 99
== END 2024-04-16 13:21 | disposition home or self-care (01) ==
PROVIDERS: Emergency Provider Student in an Organized Health Care Education/Training Program; PCP Family Medicine; Visit Provider Student in an Organized Health Care Education/Training Program
DX: M48.56XA Collapsed vertebra, not elsewhere classified, lumbar region, initial encounter for fracture (principal); E78.5 Hyperlipidemia, unspecified; I10 Essential (primary) hypertension; F17.210 Nicotine dependence, cigarettes, uncomplicated; G89.29 Other chronic pain; X58.XXXA Exposure to other specified factors, initial encounter
CPT/HCPCS: 72072; 72100; 96372; 99282

== ENCOUNTER 2024-04-25 10:45 | Emergency (ER) | payer MEDICARE, SELFPAY ==
[2024-04-25 10:45] VITALS: BP 141/82; PULSE 87; RESP 14; TEMP 36.2; O2SAT 98
[2024-04-25] MEDS: Ondansetron 4 MG/2 ML Vial IV (11:27)
[2024-04-25] MEDS: Morphine 4 MG/ML Syringe IV ×2 (11:27→12:59)
--- NOTE | 2024-04-25 11:27 | ED.VIS.BACK ---
HPI <KELLEY Roy - Last Filed: 04/25/24 18:55> History of Present Illness Chief Complaint: Back Narrative Narrative: Patient presenting today due to intractable lower back pain. On 04/11/2024 she was bending over folding laundry when she felt a pop in her back, she had increased pain and went to the ED on 04/16/2024 and an x-ray of her lumbar spine was obtained that showed a compression fracture to L4. She does follow with Dr. Gallego for pain management, despite taking Percocet at home her pain is not under control. Her cousin is having to stay with her and help her bathe, get in and out of bed, use the bathroom, and cook food. She saw Dr. Gallego today who recommended coming to the ED for admission to the hospital for further treatment. She denies any fevers, chills, leg weakness, bowel/bladder incontinence, and saddle paresthesia. PFSH <KELLEY Roy - Last Filed: 04/25/24 18:55> [facility] Medical History HTN (hypertension) HLD (hyperlipidemia) Osteoporosis Home Medications ?Medication ?Instructions ?Recorded ?Last Taken ?Type atorvastatin 10 mg tablet 10 mg PO QHS 08/25/21 04/24/24 History omeprazole 20 mg capsule,delayed 20 mg PO DAILY 09/01/21 04/24/24 History release oxycodone-acetaminophen 7.5 mg-325 1 tab PO Q6H PRN Pain 09/01/21 04/24/24 History mg tablet amitriptyline 25 mg tablet 25 mg PO QHS 04/16/24 04/24/24 History ergocalciferol (vitamin D2) 1,250 1,250 mcg PO TU 04/16/24 04/23/24 History mcg (50,000 unit) capsule gabapentin 300 mg capsule 300 mg PO 4X/DAY 04/16/24 04/24/24 History Allergy/AdvReac Type Severity Reaction Status Date / Time acetaminophen (From Vicodin) Allergy PALPITATION Verified 04/25/24 10:45 S codeine Allergy PALPITATION Verified 04/25/24 10:45 S hydrocodone (From Vicodin) Allergy PALPITATION Verified 04/25/24 10:45 S hydromorphone (From Dilaudid) AdvReac PALPITATION Verified 04/25/24 10:45 S Surgical History History of cholecystectomy History of left nephrectomy History of appendectomy History of tonsillectomy History of hysterectomy Social History Smoking Status: Current every day smoker tobacco type: cigarettes ROS <KELLEY Roy - Last Filed: 04/25/24 18:55> ROS ED Constitutional Constitutional ED: Denies chills or fever(s) Cardiovascular Cardiovascular: Denies chest pain Respiratory/Chest Respiratory/Chest: Denies dyspnea Gastrointestinal Gastrointestinal: Denies abdominal pain, nausea or vomiting Genitourinary Genitourinary ED: Denies dysuria, hematuria or urinary urgency Musculoskeletal Musculoskeletal: Reports back pain Integumentary Denies rash Neurologic Neurologic: Denies paresthesias or weakness EXAM <KELLEY Roy - Last Filed: 04/25/24 18:55> Physical Exam Const Vital Signs: 04/25/24 10:45 04/25/24 12:45 04/25/24 14:00 Temperature 97.2 F L Temperature Source Temporal Pulse Rate 87 86 96 Respiratory Rate 14 16 16 Blood Pressure 141/82 H 151/76 H 126/68 H Blood Pressure Mean 101 101 87 Pulse Ox 98 98 94 Oxygen Delivery Method Room Air Room Air Room Air 04/25/24 16:25 04/25/24 16:59 Temperature 97.1 F L Temperature Source Pulse Rate 93 95 Respiratory Rate 17 18 Blood Pressure 119/51 L 119/73 Blood Pressure Mean 73 88 Pulse Ox 97 93 Oxygen Delivery Method Room Air Positive well nourished, well developed and no apparent distress General Appearance ED: well developed HEENT Reports normocephalic and head/scalp atraumatic Mouth ED: Yes moist mucous membranes normal Eyes PERRL and EOMs intact bilaterally Neck full ROM and supple Chest Wall inspection of chest normal Resp normal respiratory effort and clear to auscultation bilaterally Cardio regular rate and regular rhythm GI soft to palpation, non-tender, non-distended and no masses Back/Spine normal to inspection Back/Spine Narrative: Limited range of motion of the lumbar spine, midline pain to palpation lumbar spine. Extremity normal to inspection and full ROM Neuro oriented x3, CN's II-XII intact bilaterally, moves all extremities, no focal motor deficits and no sensory deficits noted Sensorium / Orientation: awake and alert Motor Exam: strength 5/5 throughout Psych mental status grossly normal and thought process normal Skin no rashes or lesions noted and no wounds <Dr. Noah Rainey DO - Last Filed: 04/25/24 17:03> Physical Exam Const Vital Signs: 04/25/24 10:45 04/25/24 12:45 04/25/24 14:00 Temperature 97.2 F L Temperature Source Temporal Pulse Rate 87 86 96 Respiratory Rate 14 16 16 Blood Pressure 141/82 H 151/76 H 126/68 H Blood Pressure Mean 101 101 87 Pulse Ox 98 98 94 Oxygen Delivery Method Room Air Room Air Room Air 04/25/24 16:25 04/25/24 16:59 Temperature 97.1 F L Temperature Source Pulse Rate 93 95 Respiratory Rate 17 18 Blood Pressure 119/51 L 119/73 Blood Pressure Mean 73 88 Pulse Ox 97 93 Oxygen Delivery Method Room Air [facility] <KELLEY Roy - Last Filed: 04/25/24 18:55> [facility] Narrative Medical decision making narrative: Patient presenting due to intractable low back pain, she was diagnosed with a compression fracture at L4 on 04/16/2024, injury occurred 04/11. She sees Dr. Gallego who sent her in today for admission. She reports that they were discussing performing a epidural. Patient does not have any symptoms of cauda equina syndrome. Patient did receive multiple rounds of pain medication here in the ER. We did speak with the hospitalist, he recommended obtaining an MRI while in the ED, this shows a acute compression fracture to T12. The case was discussed with Dr. Gallego, he received approval to perform an epidural as an outpatient. Patient was then discharged from the emergency department and sent up to his office to have this performed. Lab Data Labs: Laboratory Results - last 24 hr 04/25/24 11:26 WBC 7.9 RBC 4.34 Hgb 13.1 Hct 41.2 MCV 94.9 MCH 30.2 MCHC 31.8 L RDW Std Deviation 50.9 H RDW Coeff of Ema 14.6 Plt Count 417 MPV 9.6 Immature Gran % (Auto) 0.300 Neut % (Auto) 53.2 Lymph % (Auto) 34.8 [place] % (Auto) 6.5 Eos % (Auto) 4.4 Baso % (Auto) 0.8 Absolute Neuts (auto) 4.2 Absolute Lymphs (auto) 2.76 Nucleated RBC % 0 Sodium 137 Potassium 4.1 Chloride 104 Carbon Dioxide 26.0 Anion Gap 7 BUN 11 Creatinine 0.84 Est GFR (MDRD) Af Amer 86 Est GFR (MDRD) Non-Af 71 BUN/Creatinine Ratio 13.1 Glucose 103 Calcium 9.7 Radiography Diagnostic Testing: Clinical Impression(s) from Imaging Studies Lumbar Spine MRI 04/25/24 12:18 IMPRESSION: 1. Mild acute compression fracture of the T12 vertebral body. 2. Multilevel degenerative changes, as described above. Electronically Signed: Isaiah Tomlinson MD at 15:48 EDT , <Dr. Noah Rainey, DO - Last Filed: 04/25/24 17:03> MDM History & Record Review Discussion w/independent historian: Patient Lab Data Attestation: I reviewed the patient's lab results. Labs: Laboratory Results - last 24 hr 04/25/24 11:26 WBC 7.9 RBC 4.34 Hgb 13.1 Hct 41.2 MCV 94.9 MCH 30.2 MCHC 31.8 L RDW Std Deviation 50.9 H RDW Coeff of Ema 14.6 Plt Count 417 MPV 9.6 Immature Gran % (Auto) 0.300 Neut % (Auto) 53.2 Lymph % (Auto) 34.8 [place] % (Auto) 6.5 Eos % (Auto) 4.4 Baso % (Auto) 0.8 Absolute Neuts (auto) 4.2 Absolute Lymphs (auto) 2.76 Nucleated RBC % 0 Sodium 137 Potassium 4.1 Chloride 104 Carbon Dioxide 26.0 Anion Gap 7 BUN 11 Creatinine 0.84 Est GFR (MDRD) Af Amer 86 Est GFR (MDRD) Non-Af 71 BUN/Creatinine Ratio 13.1 Glucose 103 Calcium 9.7 Radiography Diagnostic Testing: Clinical Impression(s) from Imaging Studies Lumbar Spine MRI 04/25/24 12:18 IMPRESSION: 1. Mild acute compression fracture of the T12 vertebral body. 2. Multilevel degenerative changes, as described above. Electronically Signed: Isaiah Tomlinson MD at 15:48 EDT , Treatment and Re-Evaluation Narrative: I have personally performed a face to face assessment of the patient and have reviewed the JENNA Note. I performed a substantive portion of the visit including all aspects of the following. My sanders findings include: History is 74-year-old female with back pain due to L4 compression fracture. She was sent by Dr. Gallego's office. Patient's friend is having to help her with a lot of ADLs. Patient states that the symptoms began when she was bent over picking up some clean laundry felt a pop in her back. She has had prior kyphoplasty. No bowel or bladder dysfunction. She denies any muscle weakness of lower extremity. There is some difficulty getting her epidural approved through insurance. Because of the uncontrolled pain she was sent to the emergency department Exam is patient has painful range of motion and movement in the bed. She appears neurovascularly intact. Medical Decison Making spoke with our hospitalist. Apparently Dr. Gallego will be going through an appeals phone call at 1400 hrs. There is availability to do an MRI this afternoon. We are going to work towards this goal and disposition will be made after that. MRI was obtained which demonstrates mild acute compression abnormality at T12 as well as severe severe bilateral foraminal stenosis with nerve root compression at L3-L4 and L4-L5. There is mild reactive edema present the superior endplates of L3 and L4. Case was discussed with the hospitalist Dr. Landry as well as Dr. An. Dr. Gallego has approval to do the epidural block. He is requesting the patient be discharged over to his office. Patient is amenable to this. Discharge Plan Triage Chief Complaint: Back ED Midlevel Provider: Nelia Harry ED Provider: Noah Rainey Dx/Rx/DC Orders Clinical Impression: Compression fracture, Acute on chronic back pain, Foraminal stenosis of lumbar region Instructions: Compression Fx Prescriptions: No Action atorvastatin 10 mg tablet 10 mg PO QHS omeprazole 20 mg capsule,delayed release(DR/EC) 20 mg PO DAILY oxycodone-acetaminophen 7.5-325 mg tablet 1 tab PO Q6H PRN (Reason: Pain) Patient Comments: 3-4 TIMES PER DAY amitriptyline 25 mg tablet 25 mg PO QHS gabapentin 300 mg capsule 300 mg PO 4X/DAY Patient Comments: PT STATES SHE TAKES 3 TIMES PER DAY ergocalciferol (vitamin D2) 1,250 mcg (50,000 unit) capsule 1,250 mcg PO TU Primary Care Provider: Bart Waters Referrals: Bart Waters MD [Primary Care Provider] - Activity Restrictions/Additional Instructions: Please follow-up with Dr. Gallego. Print Language: Slovak Disposition Disposition: Home, Self Care Discharge Date/Time: 04/25/24 17:00
[2024-04-25 11:36] LABS: Absolute Lymphocyte Count 2.76 X10^3/uL (0.83-4.51); Absolute Neutrophil Count 4.2 X10^3/uL (2.0-7.7); Basophil# 0.06 X10^3/uL; Basophil% 0.8 % (0-1); Eosinophil# 0.35 X10^3/uL; Eosinophils% 4.4 % (0-5); Hematocrit 41.2 % (37-47); Hemoglobin 13.1 g/dL (12.0-15.0); Lymphocyte # 2.76 X10^3/ul (0.83-4.51); Lymphocyte % 34.8 % (19-41); Mean Corp Hgb Conc 31.8 g/dL (32-36); Mean Corpuscular Hgb 30.2 pg (27.0-32.0); Mean Corpuscular Volume 94.9 fL (81-99); Mean Platelet Vol. 9.6 fl (6.2-12.0); Monocyte# 0.52 X10^3/uL; Monocyte% 6.5 % (0-10); NRBC Flagged by Analyzer 0 % (0-5); Neutrophil # 4.23 X10^3/uL (2.7-7.7); Neutrophil % 53.2 % (47-70); Platelet Count 417 K/mm3 (150-450); RBC Distribution Width CV 14.6 % (11.6-14.6); RBC Distribution Width SD 50.9 fl (35.1-43.9); Red Blood Count 4.34 M/mm3 (4.2-5.4); White Blood Count 7.9 K/mm3 (4.4-11.0)
[2024-04-25 11:44] LABS: Anion Gap 7 (5-15); BUN 11 mg/dL (7-18); BUN/Creat Ratio 13.1 RATIO (10-20); Calcium,Total 9.7 mg/dL (8.5-10.1); Chloride 104 mmol/L (98-107); Creatinine, Serum 0.84 mg/dL (0.55-1.02); EST Glomerular Filtration Rate 71 mL/min (>60); Est Glom Filt Rate - Afr Amer 86 mL/min (>60); Glucose 103 mg/dL (74-106); Potassium 4.1 mmol/L (3.5-5.1); Sodium Level 137 mmol/L (136-145)
--- NOTE | 2024-04-25 12:18 | MRI_ITS ---
STUDY: MRI LUMBAR SPINE WITHOUT CONTRAST REASON FOR EXAM: Female, 74 years old. l4 compression fracture/pain TECHNIQUE: Standardized fat and water weighted pulse sequences were obtained in the sagittal and axial planes. COMPARISON: X-ray of the lumbar spine dated April 16, 2024. CT of the lumbar spine dated September 01, 2021 FINDINGS: Mild acute compression fracture of the T12 vertebral body is present with diffuse marrow edema and a nondisplaced anterior superior fracture line. Mild marrow edema also extends into the bilateral pedicles. Overall loss of height is at 10%. Chronic compression deformities of L4, L3, L2 T11 and T10 redemonstrated.. The L3 and L4 vertebral bodies were previously treated with kyphoplasty material. Mild reactive edema is present in the superior endplates of L3 and L4. Normal lumbar lordosis. There is no substantial scoliosis. Normal conus medullaris that terminates at the L1 level. Redemonstration of moderate to severe central canal stenosis due to diffuse disc bulges and moderate to significant facet joint and ligamenta flava hypertrophy at L2-L3, L3-L4, and to a lesser degree L4-L5. Severe bilateral foraminal stenosis with nerve root compression demonstrated at L3-L4 and L4-L5. Multilevel degenerative changes are present. Normal visualized sacral ala. Normal visualized paraspinous soft tissue structures. MRI/Spine Lumbar (Routine) IMPRESSION: 1. Mild acute compression fracture of the T12 vertebral body. 2. Multilevel degenerative changes, as described above. Electronically Signed: Isaiah Tomlinson MD at 15:48 EDT ,
[2024-04-25 12:45] VITALS: BP 151/76; PULSE 86; RESP 16; O2SAT 98
[2024-04-25 14:00] VITALS: BP 126/68; PULSE 96; RESP 16; O2SAT 94
[2024-04-25] MEDS: LORazepam 2 MG/ML Syringe 1 MG IV (14:27)
[2024-04-25] MEDS: HYDROmorphone 0.5 MG/0.5 ML SYRINGE IV (14:27)
[2024-04-25 16:25] VITALS: BP 119/51; PULSE 93; RESP 17; O2SAT 97
[2024-04-25 16:30] VITALS: BMI 26.8
[2024-04-25 16:59] VITALS: BP 119/73; PULSE 95; RESP 18; TEMP 36.2; O2SAT 93
== END 2024-04-25 17:00 | disposition home or self-care (01) ==
PROVIDERS: Physician Assistant; Emergency Provider Emergency Medicine; PCP Family Medicine; Visit Provider Emergency Medicine
DX: S32.049A Unspecified fracture of fourth lumbar vertebra, initial encounter for closed fracture (principal); M48.061 Spinal stenosis, lumbar region without neurogenic claudication; F17.210 Nicotine dependence, cigarettes, uncomplicated; E78.5 Hyperlipidemia, unspecified; I10 Essential (primary) hypertension; M54.9 Dorsalgia, unspecified; G89.29 Other chronic pain; M81.0 Age-related osteoporosis without current pathological fracture; Z90.49 Acquired absence of other specified parts of digestive tract; X50.1XXA Overexertion from prolonged static or awkward postures, initial encounter; Y93.E2 Activity, laundry
CPT/HCPCS: 72148; 80048; 85025; 96374; 96375; 96376; 99285; A4216; J2405

== ENCOUNTER 2024-05-08 11:08 | Inpatient (IN) | payer MEDICARE, SELFPAY ==
[2024-05-08 11:08] VITALS: BP 135/67; PULSE 93; RESP 16; TEMP 35.8; O2SAT 95
--- NOTE | 2024-05-08 11:54 | EKG12_ITS ---
Test Reason : BACK PAIN Blood Pressure : / mmHG Vent. Rate : 079 BPM Atrial Rate : 079 BPM P-R Int : 100 ms QRS Dur : 078 ms QT Int : 338 ms P-R-T Axes : 017 -16 013 degrees QTc Int : 387 ms Sinus rhythm with short MO Otherwise normal ECG Confirmed by REBA PARRA, INGRIS ([id number]), acquisition editor JANY DAO ([id number]) on 05/10/2024 10:22:49 AM Referred By: Confirmed By:ZACKERY BRITTON MD
[2024-05-08] MEDS: Morphine 4 MG/ML Syringe IV ×3 (12:01→18:52)
[2024-05-08] MEDS: Ondansetron 4 MG/2 ML Vial IV (12:01)
[2024-05-08] MEDS: 0.9% Normal Saline (1000mL) 1,000 ML 999 ML IV (12:02)
[2024-05-08 12:05] LABS: Absolute Lymphocyte Count 3.06 X10^3/uL (0.83-4.51); Absolute Neutrophil Count 4.6 X10^3/uL (2.0-7.7); Basophil# 0.07 X10^3/uL; Basophil% 0.8 % (0-1); Eosinophil# 0.35 X10^3/uL; Hematocrit 38.1 % (37-47); Hemoglobin 12.4 g/dL (12.0-15.0); Lymphocyte # 3.06 X10^3/ul (0.83-4.51); Lymphocyte % 35.4 % (19-41); Mean Corp Hgb Conc 32.5 g/dL (32-36); Mean Corpuscular Hgb 31.2 pg (27.0-32.0); Mean Corpuscular Volume 95.7 fL (81-99); Mean Platelet Vol. 9.6 fl (6.2-12.0); Monocyte# 0.51 X10^3/uL; Monocyte% 5.9 % (0-10); NRBC Flagged by Analyzer 0 % (0-5); Neutrophil # 4.64 X10^3/uL (2.7-7.7); Neutrophil % 53.7 % (47-70); Platelet Count 470 K/mm3 (150-450); RBC Distribution Width CV 14.6 % (11.6-14.6); Red Blood Count 3.98 M/mm3 (4.2-5.4); White Blood Count 8.7 K/mm3 (4.4-11.0)
[2024-05-08 12:19] LABS: Anion Gap 2 (5-15); BUN 10 mg/dL (7-18); BUN/Creat Ratio 11.7 RATIO (10-20); Calcium,Total 9.4 mg/dL (8.5-10.1); Chloride 110 mmol/L (98-107); Creatinine, Serum 0.86 mg/dL (0.55-1.02); EST Glomerular Filtration Rate 69 mL/min (>60); Est Glom Filt Rate - Afr Amer 84 mL/min (>60); Glucose 100 mg/dL (74-106); Potassium 3.8 mmol/L (3.5-5.1); Sodium Level 140 mmol/L (136-145)
[2024-05-08 12:35] VITALS: BP 132/89; PULSE 83; RESP 16; TEMP 36.5; O2SAT 97
[2024-05-08 12:38] LABS: Mucous, Urine 0 SEEN /hpf (<or=2+); Red Blood Cells-Urine 0 SEEN /hpf (0-5); White Blood Cells 0 SEEN /hpf (0-5)
[2024-05-08 12:42] LABS: Color, Urine Yellow (Yellow); Glucose, Dipstick Normal (Normal); Ketone-Dipstick Negative (Negative); Leukocyte Esterase-Dipstick Negative /ul (Negative); Nitrite-Dipstick Negative (Negative); Occult Blood-Urine Negative /ul (Negative); Protein-Dipstick Negative (Negative); Specific Gravity, Urine 1.015 (1.002-1.030); Urine Bilirubin Dipstick Negative (Negative); Urine Clarity Clear (Clear); Urine Urobilinogen Normal (Normal)
[2024-05-08 12:52] LABS: Bacteria 1+ /hpf (None Seen); Squamous Epithelial Cells - UA 5-10 SEEN /hpf (5-10)
--- NOTE | 2024-05-08 12:58 | EX.ED.DYSGE1 ---
HPI History of Present Illness Chief Complaint: Back Narrative Narrative: Patient is a 74-year-old female with a past medical history of osteoporosis, hypertension, hyperlipidemia who presents to the emergency department with chief complaint of back pain. According to the patient she has had fractured vertebrae in the past and she knows that she has 2 more at this point time and needs a kyphoplasty. She follows with pain management Dr. Gallego. She states that she originally presented to's office and had x-rays obtained and noted that she needed a kyphoplasty they submitted this to insurance for the procedure which was immediately denied and noted that she had to have an MRI. She states that she then proceeded to have the MRI which has now been approximately 2 weeks and states that she cannot take the pain anymore. States that she called his office back and they advised her to come to the hospital to be admitted to have this procedure done to help with her pain as she is in extreme amount of pain. [facility] Medical History HTN (hypertension) HLD (hyperlipidemia) Osteoporosis Home Medications ?Medication ?Instructions ?Recorded ?Last Taken ?Type atorvastatin 10 mg tablet 10 mg PO QHS 08/25/21 04/24/24 History omeprazole 20 mg capsule,delayed 20 mg PO DAILY 09/01/21 04/24/24 History release oxycodone-acetaminophen 7.5 mg-325 1 tab PO Q6H PRN Pain 09/01/21 04/24/24 History mg tablet amitriptyline 25 mg tablet 25 mg PO QHS 04/16/24 04/24/24 History ergocalciferol (vitamin D2) 1,250 1,250 mcg PO TU 04/16/24 04/23/24 History mcg (50,000 unit) capsule gabapentin 300 mg capsule 300 mg PO 4X/DAY 04/16/24 04/24/24 History Allergy/AdvReac Type Severity Reaction Status Date / Time acetaminophen (From Vicodin) Allergy PALPITATION Verified 04/25/24 10:45 S codeine Allergy PALPITATION Verified 04/25/24 10:45 S hydrocodone (From Vicodin) Allergy PALPITATION Verified 04/25/24 10:45 S Surgical History History of cholecystectomy History of left nephrectomy History of appendectomy History of tonsillectomy History of hysterectomy Social History Smoking Status: Current every day smoker tobacco type: cigarettes ROS ROS ED ROS Narrative Constitutional: Denies fevers, chills, headaches, Ruben, dizziness Eyes: Denies change in vision double vision blurry vision Cardiovascular: Denies chest pain or palpitations Respiratory: Denies coughing wheezing shortness of breath Abdomen: Denies abdominal pain nausea vomit diarrhea : Denies any pain formation, hematuria, polyuria, difficulty urinating Neurological: Denies any numbness, weakness, tingling Musculoskeletal: Complains of back pain as noted above Skin: Denies rashes or lesions EXAM Physical Exam Narrative Exam Narrative: General: Patient was lying in bed did appear to be uncomfortable secondary to back pain Head: Atraumatic, normocephalic Eyes: PERRL bilaterally, EOMI bilaterally, no conjunctival injection noted Neck: Soft, supple, trachea midline Cardiovascular: Regular rate and rhythm no murmurs gallops or rubs noted Respiratory: Clear to auscultation bilaterally no rales rhonchi wheeze noted Abdomen: Soft, nondistended, no tenderness palpation, bowel sounds present x 4 Musculoskeletal: Patient has midline tenderness to palpation in the lower thoracic and upper lumbar region where her fractures are noted to be Extremities: +5/5 strength noted in the bilateral upper and lower extremities, no pedal edema noted on exam Neurological: Patient following commands knew that she was at [facility] year is 2023. Sensation grossly intact no saddle anesthesia noted Skin: Warm, dry, intact Const Vital Signs: 05/08/24 11:08 05/08/24 12:35 Temperature 96.5 F L 97.7 F L Temperature Source Temporal Pulse Rate 93 83 Respiratory Rate 16 16 Blood Pressure 135/67 H 132/89 H Blood Pressure Mean 89 103 Pulse Ox 95 97 Oxygen Delivery Method Room Air MDM MDM MDM Narrative Medical decision making narrative: Patient is a 74-year-old female who presented to the emergency department chief complaint of back pain. Did call and discuss the case with pain management physician Dr. Gallego who states that the patient can be admitted to the hospital and he will do the procedure while she was here. Preoperative labs were obtained. Patient case will be discussed with hospitalist for admission. Patient is a CBC reviewed and showed no evidence of leukocytosis white blood count normal 8.7, hemoglobin stable 12.4, platelet count noted to be 470, sodium normal 140, potassium normal 3.8, creatinine normal at 0.86. Patient's urinalysis did not reveal any evidence of infection. Patient is requesting more pain medication which will be given another 4 mg of morphine. Patient's case was discussed with hospitalist Dr. Nieves who accept patient for admission. Patient notified with all question concerns answered. Lab Data Labs: Laboratory Results - last 24 hr 05/08/24 05/08/24 11:56 12:31 WBC 8.7 RBC 3.98 L Hgb 12.4 Hct 38.1 MCV 95.7 MCH 31.2 MCHC 32.5 RDW Std Deviation 51.0 H RDW Coeff of Ema 14.6 Plt Count 470 H MPV 9.6 Immature Gran % (Auto) 0.200 Neut % (Auto) 53.7 Lymph % (Auto) 35.4 [place] % (Auto) 5.9 Eos % (Auto) 4.0 Baso % (Auto) 0.8 Absolute Neuts (auto) 4.6 Absolute Lymphs (auto) 3.06 Nucleated RBC % 0 Sodium 140 Potassium 3.8 Chloride 110 H Carbon Dioxide 28.0 Anion Gap 2 L BUN 10 Creatinine 0.86 Est GFR (MDRD) Af Amer 84 Est GFR (MDRD) Non-Af 69 BUN/Creatinine Ratio 11.7 Glucose 100 Calcium 9.4 Urine Color Yellow Urine Clarity Clear Urine pH 6.0 Ur Specific [place] 1.015 Urine Protein Negative Urine Glucose (UA) Normal Urine Ketones Negative Urine Occult Blood Negative Urine Nitrite Negative Urine Bilirubin Negative Urine Urobilinogen Normal Ur Leukocyte Esterase Negative Urine RBC 0 SEEN Urine WBC 0 SEEN Ur Squamous Epith Cells 5-10 SEEN Urine Bacteria 1+ Urine Mucus 0 SEEN Discharge Plan Triage Chief Complaint: Back ED Provider: Markus Antonio Dx/Rx/DC Orders Primary Care Provider: Bart Waters Disposition Disposition: Acute Care [facility]
[2024-05-08 13:08] VITALS: BP 128/82; PULSE 82; RESP 16; O2SAT 96
--- NOTE | 2024-05-08 13:29 | NURSING ---
MED SURG TERELETSKY COMPRESSION FRACTURES
[2024-05-08 14:45] VITALS: BMI 24.7
[2024-05-08 14:50] VITALS: BP 135/69; PULSE 80; RESP 18; TEMP 36.9; O2SAT 98
--- NOTE | 2024-05-08 15:17 | PCM.CONS.GEN ---
Assessment & Plan Assessment/Plan (1) Age-related osteoporosis with current pathological fracture, vertebra(e), initial encounter for fracture: PLAN: MRI shows acute T12 compression fracture. LESI provided only short term relief. Pain returned quickly. Due to severe debility and pain will plan for T12 kyphoplasty. She says she cant do laundry, walk downstairs, drive the car, barely take a shower. Prescribefd gabapentin, Elavil and percocet. NPO status at midnight prior to procedure (2) Age-related osteoporosis with current pathological fracture, unspecified site, initial encounter for fracture: (3) Age-related osteoporosis with current pathol fracture of vertebra: QUALIFIERS: Encounter type: initial encounter Qualified Code(s): M80.08XA - Age-related osteoporosis with current pathological fracture, vertebra(e), initial encounter for fracture HPI Consult Data Date of Consult: 05/08/24 HPI Narrative Reason for Consultation: Back pain HPI Narrative: EDWARD JIMENEZ, is a 74 F who presents with back pain. She was lifting a laundry basket about 1 month ago. XR showed L4 fracture. Subsequent MRI showed that L4 was chronic, but T12 acute fracture. The pain has been severe and debilitating. She has needed assistance with many basic ADLs, such as going to the bathroom due to pain. She has also multilevel significant spinal stenosis. Had a LESI recently, but this only improved for a day or so and returned. She was sent to the ED for MRI and evaluation given severity of pain and debility. She states she cant do laundry, walk downstairs, drive, or cook after the injury. [facility] Medical History (Updated 05/08/24 @ 17:[address] Bear Puentes MD) Chronic pain Smoker HTN (hypertension) HLD (hyperlipidemia) Osteoporosis Home Medications ?Medication ?Instructions ?Recorded ?Last Taken ?Type atorvastatin 10 mg tablet 10 mg PO QHS 08/25/21 04/24/24 History omeprazole 20 mg capsule,delayed 20 mg PO DAILY 09/01/21 04/24/24 History release oxycodone-acetaminophen 7.5 mg-325 1 tab PO Q6H PRN Pain 09/01/21 04/24/24 History mg tablet amitriptyline 25 mg tablet 25 mg PO QHS 04/16/24 04/24/24 History ergocalciferol (vitamin D2) 1,250 1,250 mcg PO TU 04/16/24 04/23/24 History mcg (50,000 unit) capsule gabapentin 300 mg capsule 300 mg PO 4X/DAY 04/16/24 04/24/24 History Allergy/AdvReac Type Severity Reaction Status Date / Time acetaminophen (From Vicodin) Allergy PALPITATION Verified 04/25/24 10:45 S codeine Allergy PALPITATION Verified 04/25/24 10:45 S hydrocodone (From Vicodin) Allergy PALPITATION Verified 04/25/24 10:45 S Surgical History History of cholecystectomy History of left nephrectomy History of appendectomy History of tonsillectomy History of hysterectomy Social History Smoking Status: Current every day smoker tobacco type: cigarettes ROS ROS Narrative Denies loss of bowel, bladder control. No Saddle parasthesia. Physical Exam Narrative Lower thoracic pain to percussion. Paravertebral tenderness over thoracic and lumbar spine. Facet load + bilaterally in lumbar area 5/5 motor strength in the lower extremities. DTR physiologic SLR negative normal sensation Normal affect/mood Const alert, oriented x3 and no apparent distress Resp normal respiratory effort Lab / Micro Data 05/08/24 11:56 05/08/24 11:56 Labs: Laboratory Results - last 24 hr 05/08/24 11:56: WBC 8.7, RBC 3.98 L, Hgb 12.4, Hct 38.1, MCV 95.7, MCH 31.2, MCHC 32.5, RDW Std Deviation 51.0 H, RDW Coeff of Ema 14.6, Plt Count 470 H, MPV 9.6, Immature Gran % (Auto) 0.200, Neut % (Auto) 53.7, Lymph % (Auto) 35.4, [place] % (Auto) 5.9, Eos % (Auto) 4.0, Baso % (Auto) 0.8, Absolute Neuts (auto) 4.6, Absolute Lymphs (auto) 3.06, Nucleated RBC % 0, Sodium 140, Potassium 3.8, Chloride 110 H, Carbon Dioxide 28.0, Anion Gap 2 L, BUN 10, Creatinine 0.86, Est GFR (MDRD) Af Amer 84, Est GFR (MDRD) Non-Af 69, BUN/Creatinine Ratio 11.7, Glucose 100, Calcium 9.4 05/08/24 12:31: Urine Color Yellow, Urine Clarity Clear, Urine pH 6.0, Ur Specific [place] 1.015, Urine Protein Negative, Urine Glucose (UA) Normal, Urine Ketones Negative, Urine Occult Blood Negative, Urine Nitrite Negative, Urine Bilirubin Negative, Urine Urobilinogen Normal, Ur Leukocyte Esterase Negative, Urine RBC 0 SEEN, Urine WBC 0 SEEN, Ur Squamous Epith Cells 5-10 SEEN, Urine Bacteria 1+, Urine Mucus 0 SEEN Imaging [facility] Imaging Services [address], [place] [id number] Spine Lumbar (Routine) MR#: [id number] Acct: [id number] Name: EDWARD JIMENEZ Rep #: [id number] : 1950 F 74 From: Isaiah Tomlinson MD PCP: Dr. Bart Waters MD Status: [facility] ER Study: Spine Lumbar (Routine) Date of Exam: 04/25/24 Exam# [id number] FINDINGS: Mild acute compression fracture of the T12 vertebral body is present with diffuse marrow edema and a nondisplaced anterior superior fracture line. Mild marrow edema also extends into the bilateral pedicles. Overall loss of height is at 10%. Chronic compression deformities of L4, L3, L2 T11 and T10 redemonstrated.. The L3 and L4 vertebral bodies were previously treated with kyphoplasty material. Mild reactive edema is present in the superior endplates of L3 and L4. Normal lumbar lordosis. There is no substantial scoliosis. Normal conus medullaris that terminates at the L1 level. Redemonstration of moderate to severe central canal stenosis due to diffuse disc bulges and moderate to significant facet joint and ligamenta flava hypertrophy at L2-L3, L3-L4, and to a lesser degree L4-L5. Severe bilateral foraminal stenosis with nerve root compression demonstrated at L3-L4 and L4-L5. Multilevel degenerative changes are present. Normal visualized sacral ala. Normal visualized paraspinous soft tissue structures.
[2024-05-08] MEDS: Gabapentin 300 MG Capsule PO ×3 (15:40→21:25)
[2024-05-08] MEDS: oxyCODONE 5 MG Tablet PO (15:51)
[2024-05-08 16:02] VITALS: PULSE 84; RESP 16; O2SAT 96
--- NOTE | 2024-05-08 17:50 | HP.PCM.HOS_ITS ---
HPI - General General Date of Admission: 05/08/24 Date of Service: 05/08/24 Chief Complaint: Low back pain with failed outpatient treatment HPI Narrative EDWARD JIMENEZ, is a 74 F who presents to the emergency room at [facility] with complaints of low back pain, she was diagnosed approximately two weeks ago with a compression fracture at T12, she underwent an epidural injection at that time but this injection only helped for approximately 24 hours. She has been taking narcotic pain medications at home without relief from the back pain, she does have a pain management physician and they had attempted to obtain permission for kyphoplasty but did not heard back from the insurance company. Patient states she is unable to perform ADLs at home. Labs obtained in the emergency room included a CBC which was unremarkable, chemistry profile was also unremarkable, and urinalysis was remarkable for +1 bacteria but no white cells or red cells. Patient will be admitted to [place] [id number], she will be given IV narcotics for pain control, I will place her on time-released narcotic medication, she will be seen in consultation by pain management-she will need to undergo a kyphoplasty. [facility] Medical History (Updated 05/08/24 @ 17:[address] Bear Puentes MD) Chronic pain Smoker HTN (hypertension) HLD (hyperlipidemia) Osteoporosis Home Medications ?Medication ?Instructions ?Recorded ?Last Taken ?Type atorvastatin 10 mg tablet 10 mg PO QHS 08/25/21 04/24/24 History omeprazole 20 mg capsule,delayed 20 mg PO DAILY 09/01/21 04/24/24 History release oxycodone-acetaminophen 7.5 mg-325 1 tab PO Q6H PRN Pain 09/01/21 04/24/24 History mg tablet amitriptyline 25 mg tablet 25 mg PO QHS 04/16/24 04/24/24 History ergocalciferol (vitamin D2) 1,250 1,250 mcg PO TU 04/16/24 04/23/24 History mcg (50,000 unit) capsule gabapentin 300 mg capsule 300 mg PO 4X/DAY 04/16/24 04/24/24 History Allergy/AdvReac Type Severity Reaction Status Date / Time acetaminophen (From Vicodin) Allergy PALPITATION Verified 04/25/24 10:45 S codeine Allergy PALPITATION Verified 04/25/24 10:45 S hydrocodone (From Vicodin) Allergy PALPITATION Verified 04/25/24 10:45 S Surgical History History of cholecystectomy History of left nephrectomy History of appendectomy History of tonsillectomy History of hysterectomy Social History Smoking Status: Current every day smoker tobacco type: cigarettes ROS Constitutional Constitutional: Denies anorexia, change in weight, chills, fatigue, fever(s), night sweats or weakness Eyes Eyes: Denies blurry vision, change in vision, discharge from eye(s) or eye pain Cardiovascular Cardiovascular: Denies chest pain, claudication, dyspnea on exertion, edema or palpitations Respiratory/Chest Respiratory/Chest: Denies cough, hemoptysis, shortness of breath at rest or shortness of breath with exertion Gastrointestinal Gastrointestinal: Denies abdominal pain, constipation, diarrhea, hematemesis, hematochezia, melena, nausea or vomiting Genitourinary Genitourinary: Denies dysuria, hematuria, urinary frequency, urinary hesitancy, urinary incontinence or urinary urgency Musculoskeletal Musculoskeletal: Reports back pain; Denies joint pain, joint stiffness, joint swelling, myalgias or neck pain Neurologic Neurologic: Denies abnormal gait, abnormal speech, dizziness, focal weakness, headache(s), loss of vision, numbness, other visual disturbances, paresthesias, syncope or tingling Psychiatric Psychiatric: Denies anxiety, cognitive impairment, depression, irritability, mood swings or suicidal ideation Endocrine Endocrinology: Denies change in body appearance, cold intolerance, excessive sweating, heat intolerance, polydipsia or polyuria Hematologic/Lymphatic Hematologic/Lymphatic: Denies none, anemia, easy bleeding, easy bruising or lymphadenopathy Allergic/Immunologic Allergic/Immunologic: Denies rhinitis, urticaria, eczemia or asthma Vital Signs Vital Signs Vital Signs: 05/08/24 11:08 05/08/24 12:35 05/08/24 13:08 Temperature 96.5 F L 97.7 F L Temperature Source Temporal Pulse Rate 93 83 82 Respiratory Rate 16 16 16 Respiratory Effort Respiratory Depth Respiratory Pattern Blood Pressure 135/67 H 132/89 H 128/82 H Blood Pressure Mean 89 103 97 Blood Pressure Source Blood Pressure Position Blood Pressure Location Pulse Ox 95 97 96 Oxygen Delivery Method Room Air Room Air 05/08/24 14:50 05/08/24 16:02 Temperature 98.4 F Temperature Source Oral Pulse Rate 80 84 Respiratory Rate 18 16 Respiratory Effort Normal Respiratory Depth Normal Respiratory Pattern Normal Blood Pressure 135/69 H Blood Pressure Mean 91 Blood Pressure Source Monitor Blood Pressure Position Semi-Fowlers Blood Pressure Location Left Arm Pulse Ox 98 96 Oxygen Delivery Method Room Air Room Air Weight Weight: 55.5 kg Body Mass Index (BMI) 24.7 Physical Exam Const alert, oriented x3, no apparent distress and average body habitus General Appearance: cooperative, well kempt and well developed Orientation / Consciousness: awake, oriented to person, oriented to place and oriented to time HEENT normocephalic, head/scalp atraumatic, hearing grossly normal bilaterally and moist oral mucous membranes Eyes PERRL, EOMs intact bilaterally and conjunctivae normal Neck supple, no JVD, thyroid normal and no carotid bruits General: trachea midline Resp normal respiratory effort, no retractions, no use of accessory muscles and clear to auscultation bilaterally Auscultation: Negative for rales, rhonchi or wheezes Cardio regular rate, regular rhythm, S1 normal heart sound, S2 normal heart sound, no murmurs, no rub and no gallops GI normal to inspection, nondistended, normoactive bowel sounds, soft to palpation, non-tender and non-distended Extremity no clubbing, cyanosis or edema Skin no rashes or lesions noted General Skin Exam: no breakdown Neuro oriented x3, CN's II-XII intact bilaterally, no focal motor deficits and no sensory deficits noted Neuro Narrative: Patient was unable to stand due to back pain, she was unable to get in a seated position without assistance Sensorium / Orientation: awake and alert Speech: speech normal Psych affect normal Results Lab / Micro Data 05/08/24 11:56 05/08/24 11:56 Labs: Laboratory Results - last 24 hr 05/08/24 11:56: WBC 8.7, RBC 3.98 L, Hgb 12.4, Hct 38.1, MCV 95.7, MCH 31.2, MCHC 32.5, RDW Std Deviation 51.0 H, RDW Coeff of Ema 14.6, Plt Count 470 H, MPV 9.6, Immature Gran % (Auto) 0.200, Neut % (Auto) 53.7, Lymph % (Auto) 35.4, [place] % (Auto) 5.9, Eos % (Auto) 4.0, Baso % (Auto) 0.8, Absolute Neuts (auto) 4.6, Absolute Lymphs (auto) 3.06, Nucleated RBC % 0, Sodium 140, Potassium 3.8, C hloride 110 H, Carbon Dioxide 28.0, Anion Gap 2 L, BUN 10, Creatinine 0.86, Est GFR (MDRD) Af Amer 84, Est GFR (MDRD) Non-Af 69, BUN/Creatinine Ratio 11.7, Glucose 100, Calcium 9.4 05/08/24 12:31: Urine Color Yellow, Urine Clarity Clear, Urine pH 6.0, Ur Specific [place] 1.015, Urine Protein Negative, Urine Glucose (UA) Normal, Urine Ketones Negative, Urine Occult Blood Negative, Urine Nitrite Negative, Urine Bilirubin Negative, Urine Urobilinogen Normal, Ur Leukocyte Esterase Negative, Urine RBC 0 SEEN, Urine WBC 0 SEEN, Ur Squamous Epith Cells 5-10 SEEN, Urine Bacteria 1+, Urine Mucus 0 SEEN Assessment & Plan Assessment/Plan (1) Age-related osteoporosis with current pathol fracture of vertebra: QUALIFIERS: Encounter type: initial encounter Qualified Code(s): M80.08XA - Age-related osteoporosis with current pathological fracture, vertebra(e), initial encounter for fracture PLAN: Plan 1. Acute T12 compression fracture due to osteoporosis with failed outpatient treatment-patient was admitted to [facility], she was placed on IV Decadron and given IV narcotics for pain control as well as time-released narcotics and immediate release oral narcotics. She will be seen by pain management in consultation and need to undergo a kyphoplasty. 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
[2024-05-08] MEDS: dexAMETHasone 4 MG/ML Vial IV (18:51)
[2024-05-08 20:39] VITALS: BP 124/67; PULSE 81; RESP 18; TEMP 36.6; O2SAT 96
[2024-05-08] MEDS: Amitriptyline 25 MG Tablet PO (21:25)
[2024-05-08] MEDS: oxyCODONE HCl Cr 10 MG Tablet 20 MG PO (21:25)
[2024-05-08] MEDS: Atorvastatin Calcium 10 MG Tablet PO (21:25)
[2024-05-08] MEDS: Polyethylene Glycol 3350 17 GM PACKET PO (21:25)
[2024-05-09] MEDS: 0.9% Saline Lock 10 ML Syringe IV ×4 (00:05→22:49)
[2024-05-09] MEDS: dexAMETHasone 4 MG/ML Vial IV ×5 (00:05→22:49)
[2024-05-09 03:29] VITALS: BP 107/68; PULSE 87; RESP 18; TEMP 36.4; O2SAT 92
--- NOTE | 2024-05-09 08:56 | PN.HOSP_ITS ---
Reason for Visit Reason for Visit: Diagnoses Age-related osteoporosis with current pathological fracture, unspecified site, initial encounter for fracture (05/08/24) Age-related osteoporosis with current pathological fracture, vertebra(e), initial encounter for fracture (05/08/24) Subjective Subjective Patient was seen and examined today, she states her pain is better controlled. She is scheduled to undergo kyphoplasty tomorrow Objective Data Objective Data Vital Signs: Vital Signs Temp Pulse Resp BP Pulse Ox O2 Del Method 97.6 F L 87 18 107/68 92 Room Air 05/09/24 03:29 05/09/24 03:29 05/09/24 03:29 05/09/24 03:29 05/09/24 03:05/09/24 03:29 Oxygen Delivery Method Room Air Weight: 55.5 kg Body Mass Index (BMI) 24.7 Intake & Output: Intake and Output for Last 24 Hours 05/07/24 05/08/24 05/09/24 23:59 23:59 23:59 Intake Total 1662 / 1662 500 / 500 Balance 1662 / 1662 500 / 500 Lab / Micro Data 05/08/24 11:56 05/08/24 11:56 Labs: Laboratory Results - last 24 hr 05/08/24 11:56: WBC 8.7, RBC 3.98 L, Hgb 12.4, Hct 38.1, MCV 95.7, MCH 31.2, MCHC 32.5, RDW Std Deviation 51.0 H, RDW Coeff of Ema 14.6, Plt Count 470 H, MPV 9.6, Immature Gran % (Auto) 0.200, Neut % (Auto) 53.7, Lymph % (Auto) 35.4, [place] % (Auto) 5.9, Eos % (Auto) 4.0, Baso % (Auto) 0.8, Absolute Neuts (auto) 4.6, Absolute Lymphs (auto) 3.06, Nucleated RBC % 0, Sodium 140, Potassium 3.8, C hloride 110 H, Carbon Dioxide 28.0, Anion Gap 2 L, BUN 10, Creatinine 0.86, Est GFR (MDRD) Af Amer 84, Est GFR (MDRD) Non-Af 69, BUN/Creatinine Ratio 11.7, Glucose 100, Calcium 9.4 05/08/24 12:31: Urine Color Yellow, Urine Clarity Clear, Urine pH 6.0, Ur Specific [place] 1.015, Urine Protein Negative, Urine Glucose (UA) Normal, Urine Ketones Negative, Urine Occult Blood Negative, Urine Nitrite Negative, Urine Bilirubin Negative, Urine Urobilinogen Normal, Ur Leukocyte Esterase Negative, Urine RBC 0 SEEN, Urine WBC 0 SEEN, Ur Squamous Epith Cells 5-10 SEEN, Urine Bacteria 1+, Urine Mucus 0 SEEN Physical Exam Narrative alert, oriented x3, no apparent distress and average body habitus General Appearance: cooperative, well kempt and well developed Orientation / Consciousness: awake, oriented to person, oriented to place and oriented to time HEENT normocephalic, head/scalp atraumatic, hearing grossly normal bilaterally and moist oral mucous membranes Eyes PERRL, EOMs intact bilaterally and conjunctivae normal Neck supple, no JVD, thyroid normal and no carotid bruits General: trachea midline Resp normal respiratory effort, no retractions, no use of accessory muscles and clear to auscultation bilaterally Auscultation: Negative for rales, rhonchi or wheezes Cardio regular rate, regular rhythm, S1 normal heart sound, S2 normal heart sound, no murmurs, no rub and no gallops GI normal to inspection, nondistended, normoactive bowel sounds, soft to palpation, non-tender and non-distended Extremity no clubbing, cyanosis or edema Skin no rashes or lesions noted General Skin Exam: no breakdown Neuro oriented x3, CN's II-XII intact bilaterally, no focal motor deficits and no sensory deficits noted Neuro Narrative: Patient was unable to stand due to back pain, she was unable to get in a seated position without assistance Sensorium / Orientation: awake and alert Speech: speech normal Psych affect normal Assessment & Plan Assessment/Plan (1) Age-related osteoporosis with current pathol fracture of vertebra: QUALIFIERS: Encounter type: initial encounter Qualified Code(s): M80.08XA - Age-related osteoporosis with current pathological fracture, vertebra(e), initial encounter for fracture PLAN: Plan 1. 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
[2024-05-09 09:30] VITALS: BP 111/74; PULSE 76; RESP 18; TEMP 36.8; O2SAT 93
[2024-05-09] MEDS: Polyethylene Glycol 3350 17 GM PACKET PO (09:59)
[2024-05-09] MEDS: oxyCODONE HCl Cr 10 MG Tablet 20 MG PO ×2 (09:59→22:49)
[2024-05-09] MEDS: Gabapentin 300 MG Capsule PO ×4 (09:59→22:49)
[2024-05-09] MEDS: Pantoprazole Sodium 20 MG Tablet PO (10:00)
--- NOTE | 2024-05-09 13:28 | CASEMGMT ---
ELEN ETIENNE Assessment Face to Face with patient for initial transition planning/care coordination assessment. ELEN ETIENNE introduced self and role at [facility], pt voices understanding. Pt is A&Ox4 and is resting comfortably in the chair and is calm. Care providers, pharmacy, and demographics verified. Admitting dx: Compression Fractures PCP: Bart Waters Specialists: Julián (PM), Dr. Kamran Olivier (Ortho) Preferred Pharmacy: [facility] Insurance: [facility] Prescription Benefit: Yes LNOK: Korin Crocker (Sister) Living Arrangements: Pt normally lives alone in a single story home with 3 steps to enter with a handrail. Pt states that her sister is currently living with the pt ADLs/IADLs: Pt requires some assistance with IADLs and states that her sister as well as her neighbor helps. Pt states that her neighbor is like my family. Transportation: Self, sister, DONTA, Friends. Denies concerns DME: Back brace. Cane. FWW. Rollator. W/C. Walk in shower with GB and chair. Denies concerns HHC/SNF: States Hx of HHC x2 years ago but cannot recall the name of the agency. Pt states that she has been to [facility] Pt?s goal: Home with Psychiatric Therapist Plan: Pt plans to Dc home with her sister once she is medically ready. Pt denies the need for SNF, HHC, or OP Tx. Per PT, 6-Click is 20 and the pt was able to ambulate 150 ft. Pt states I could have walked more if I needed. Pt states that she would like to review a list of Private Duty Aides/Agency with pricing. Report given to APOLLO MYRICK CM. Natalie Medina RN, CM
[2024-05-09 14:24] VITALS: BP 128/75; PULSE 86; RESP 16; TEMP 36.8; O2SAT 100
--- NOTE | 2024-05-09 14:54 | CASEMGMT ---
Pt provided a list of private duty agencies per request. Pt thankful for the information.
[2024-05-09] MEDS: oxyCODONE 5 MG Tablet PO (20:21)
[2024-05-09 21:06] VITALS: BP 131/73; PULSE 100; RESP 16; TEMP 36.7; O2SAT 96
[2024-05-09] MEDS: Atorvastatin Calcium 10 MG Tablet PO (22:49)
[2024-05-09] MEDS: Amitriptyline 25 MG Tablet PO (22:49)
[2024-05-09 22:52] VITALS: BP 148/91; PULSE 84; RESP 16; TEMP 36.6; O2SAT 96
[2024-05-10] VITALS (17 sets, daily range): BP systolic 121–146; BP diastolic 60–123; PULSE 69–98; RESP 14–18; TEMP 35.8–36.8; O2SAT 93–99; BMI 24.7
[2024-05-10] MEDS: 0.9% Saline Lock 10 ML Syringe IV (05:18)
[2024-05-10] MEDS: dexAMETHasone 4 MG/ML Vial IV (05:18)
--- NOTE | 2024-05-10 07:18 | PN.HOSP_ITS ---
Reason for Visit Reason for Visit: Diagnoses Age-related osteoporosis with current pathological fracture, unspecified site, initial encounter for fracture (05/08/24) Age-related osteoporosis with current pathological fracture, vertebra(e), initial encounter for fracture (05/08/24) Subjective Subjective Patient is a 75-year-old female admitted with T12 compression fracture. Patient symptoms began 2 weeks ago and had apparently failed outpatient treatment admitted for kyphoplasty Objective Data Objective Data Vital Signs: Vital Signs Temp Pulse Resp BP Pulse Ox O2 Del Method 97.9 F 98 16 138/96 H 93 Room Air 05/10/24 05:15 05/10/24 05:15 05/10/24 05:15 05/10/24 05:15 05/10/24 05:15 05/10/24 05:15 Oxygen Delivery Method Room Air Weight: 55.5 kg Body Mass Index (BMI) 24.7 Intake & Output: Intake and Output for Last 24 Hours 05/08/24 05/09/24 05/10/24 23:59 23:59 23:59 Intake Total 1662 / 1662 1300 / 1300 Balance 1662 / 1662 1300 / 1300 Lab / Micro Data 05/08/24 11:56 05/08/24 11:56 Physical Exam Narrative GENERAL: cooperative HEENT: Atraumatic; normocephalic EYES; Anicteric, Normal Conjunctiva NECK; supple, normal thyroid, RESPIRATORY: Diminished to auscultation CARDIOVASCULAR: Regular S1 S2, GI: soft, normoactive bowel sounds, : No Renal angle tenderness; EXTREMITIES: No edema, no clubbing, MUSCULOSKELETAL: no muscle wasting NEURO: Awake; no lateralizing signs. SKIN: No Rash PSYCH; Flat affect Assessment & Plan Assessment/Plan (1) Age-related osteoporosis with current pathol fracture of vertebra: QUALIFIERS: Encounter type: initial encounter Qualified Code(s): M80.08XA - Age-related osteoporosis with current pathological fracture, vertebra(e), initial encounter for fracture PLAN: Plan Patient is a 75-year-old female admitted with T12 compression fracture. Patient symptoms began 2 weeks ago and had apparently failed outpatient treatment admitted for kyphoplasty 1. Acute T12 compression fracture -due to osteoporosis with failed outpatient treatment-treatment initiated IV corticosteroids, IV narcotics as needed for pain control, OxyContin for long- term pain control and oral oxycodone as needed, plan is for patient to undergo kyphoplasty on 05/10/2024 2. Degenerative joint disease of the lumbar spine ? Complicating care 3. Dyslipidemia -Patient is on statin therapy, continued at home dose 4. GERD ? On PPI 5. DVT prophylaxis ? Bilateral SCDs for now Time spent in the patient's overall evaluation,decision-making process, review of diagnostic data, adjustment of management, discussion with other providers, nursing nursing and ancillary staff involved in patient's care documentation, 36 minutes Charges/Coding Visit Charges Inpatient E&M: 91828 Subs Hosp L2
--- NOTE | 2024-05-10 08:22 | NURSING ---
Resp. notified of EKG via phone.
[2024-05-10] MEDS: oxyCODONE HCl Cr 10 MG Tablet 20 MG PO ×2 (09:24→21:34)
--- NOTE | 2024-05-10 12:09 | NURSING ---
Pt brought down to surgey via bed.
--- NOTE | 2024-05-10 12:31 | PCM.PRE.AN2 ---
ASA Classification* ASA Classification ASA Classification: 3 Assessment & Plan Anesthesia* Anesthesia Assessment Anesthesia Assessment: Discussed sedation and/or anesthesia options, risks, benefits, and alternatives with patient/parents/legal guardian/POA. Questions invited. The patient/parents/legal guardian/POA seems to understand and agrees to proceed with anesthesia plan. Reviewed the physical assessment, medical history, allergy history and patient home medications list prior to surgery/procedure/anesthetic and documented any changes. Performed airway and anesthesia risk assessments. Anesthesia Type Anesthesia Type: General (Had episode during hip surgery at end, patient remained intubated for 2-3 days post op blood clot suspected, PE but work up - per patient unknown cause) Anesthesia Focused Assessment* Temperature: 98.3 F Pulse Rate: 73 Blood Pressure: 134/71 Respiratory Rate: 16 Pulse Ox: 95 Airway Assessment Mouth opens: >3 cm Mallampati Score: II Focused Labs Anesthesia Preop lab: CBC WBC 8.7 K/mm3 (4.4-11.0) 05/08/24 11:56 RBC 3.98 M/mm3 (4.2-5.4) L 05/08/24 11:56 Hgb 12.4 g/dL (12.0-15.0) 05/08/24 11:56 Hct 38.1 % (37-47) 05/08/24 11:56 Plt Count 470 K/mm3 (150-450) H 05/08/24 11:56 CHEMISTRY Potassium 3.8 mmol/L (3.5-5.1) 05/08/24 11:56 Sodium 140 mmol/L (136-145) 05/08/24 11:56 BUN 10 mg/dL (7-18) 05/08/24 11:56 Creatinine 0.86 mg/dL (0.55-1.02) 05/08/24 11:56 Glucose 100 mg/dL (74-106) 05/08/24 11:56 COAG Pre-Assessment Diagnosis/Proposed Procedure Planned Operative Procedure(s): Kyphoplasty T12 Anesthesia History 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 When Was Last Pacemaker Check QUESTION #4 FULL TEXT: You/Your Family Experience fever (hyperthermia) with Anesthesia Last Oral Intake Last Oral intake: Last Oral Intake NPO since 00:00 05/10/24 11:18 Meds taken in AM with sips of Yes 05/10/24 11:18 water? Meds patient instructed to Oxy 20mg 05/10/24 11:18 take am of surgery PONV PONV - coupon and bond collection clerk: PONV - coupon and bond collection clerk Female HX of Motion Sickness HX of N/V After Surgery Non-Smoker Duration of Surgery greater than 60 minutes Number of Risk Factors PONV Score Height & Weight Height & Weight: Anesthesia: Height & Weight Height 4 ft 11 in 05/10/24 11:18 Weight: 55.5 kg 05/10/24 11:18 Body Mass Index (BMI) 24.7 05/10/24 11:18 Respiratory Assessment Respiratory Assessment - coupon and bond collection clerk: Respiratory Tract Infection Hx - coupon and bond collection clerk Hx Respiratory Tract Infection No 05/10/24 09:50 STOP Sleep Apnea STOP Sleep Apnea - coupon and bond collection clerk: STOP Sleep Apnea - coupon and bond collection clerk Hx Hypertension Yes 05/09/24 11:30 Hx Sleep Apnea No 05/08/24 14:45 CPAP BIPAP Do you snore loudly (louder No 05/08/24 14:45 than talking or can be heard Do you often feel tired/ No 05/08/24 14:45 fatigued/ sleepy during daytime? Has anyone observed you stop No 05/08/24 14:45 breathing during sleep? STOP Results Negative 05/08/24 14:45 QUESTION #5 FULL TEXT : Do you snore loudly (louder than talking or can be heard through closed doors)? Tobacco Use History Tobacco Use History - coupon and bond collection clerk: Tobacco Use History - coupon and bond collection clerk Tobacco Use Smoking Status Current every day smoker 05/08/24 17:26 Hx Tobacco Use Yes 05/08/24 14:45 Years Smoking Packs Smoked per Day Smoking Cessation Date was within the last 15 years Hx Smoking Cessation Date Hx Smoking Cessation No 05/08/24 14:45 Counseling Hematologic Medial History Hematologic Hx - coupon and bond collection clerk: Hematologic Medical Hx - continuity person Hx of Blood Transfusion No 05/08/24 14:45 Hx of Transfusion in last 3 No 05/08/24 14:45 Months Date of Last Transfusion (if within last 3 months) Ever experience any problems No 05/08/24 14:45 with transfusion(s)? Specify any problems Hx of Preganancy in last 3 N/A 05/08/24 14:45 Months Nurse Filling Out Transfusion FSTEINER 05/08/24 14:45 & Questions: Date: 05/08/24 05/08/24 14:45 Time: 14:47 05/08/24 14:45 Patient unable to answer at this time (ie. confused, unrespo /Reproduction History /Reproductive History - coupon and bond collection clerk: /Reproductive Hx- coupon and bond collection clerk Hx Now No 05/10/24 09:50 Gestational Age (in weeks): EDC: Hx Hx Para Hx Section SAB No 05/10/24 09:50 Active Medications Active Medications: Current Medications Generic Name Dose Route Start Last Admin Trade Name Freq PRN Reason Stop Dose Admin Amitriptyline HCl 25 mg 05/08/24 22:00 05/09/24 22:49 Amitriptyline 25 Mg Tablet PO 25 mg QHS PADMINI Administration Atorvastatin Calcium 10 mg 05/08/24 22:00 05/09/24 22:49 Atorvastatin Calcium 10 Mg Tablet PO 10 mg QHS PADMINI Administration Dexamethasone Sodium Phosphate 4 mg 05/08/24 18:00 05/10/24 11:50 Dexamethasone 4 Mg/Ml Vial IV Not Given Q6 PADMINI Ergocalciferol 1.25 mg 05/14/24 10:00 Ergocalciferol 1.25 Mg (50, 000 Unit) Capsule PO Tu@1000 PADMINI Gabapentin 300 mg 05/08/24 15:00 05/10/24 08:20 Gabapentin 300 Mg Capsule PO Not Given 4X/DAY PADMINI Sodium Chloride 250 mls @ 15 mls/hr 05/08/24 14:45 IV .[id number] PRN Additional IVPB Infusion Sodium Chloride 250 mls @ 15 mls/hr 05/08/24 14:45 IV .[id number] PRN Saline Flush Lactated Ringer's 1,000 mls @ 15 mls/hr 05/10/24 12:15 IV .Q48H PADMINI Morphine Sulfate 4 - 6 mg 05/08/24 15:00 05/08/24 18:52 Morphine 4 Mg/Ml Syringe IV 6 mg Q3H PRN PRN Administration Pain Score 6-10 Oxycodone HCl 20 mg 05/08/24 22:00 05/10/24 09:24 Oxycodone Hcl Cr 10 Mg Tablet PO 20 mg BID PADMINI Administration Oxycodone HCl 10 - 15 mg 05/08/24 15:40 05/09/24 20:21 Oxycodone 5 Mg Tablet PO 15 mg Q4H PRN PRN Administration Pain Score 1-10 Pantoprazole Sodium 20 mg 05/09/24 10:00 05/10/24 08:20 Pantoprazole Sodium 20 Mg Tablet PO Not Given DAILY PADMINI Polyethylene Glycol 17 gm 05/08/24 22:00 05/10/24 08:20 Polyethylene Glycol 3350 17 Gm Packet PO Not Given BID PADMINI Sodium Chloride 10 - 40 ml 05/08/24 14:45 05/10/24 05:18 0.9% Saline Lock 10 Ml Syringe IV 10 ml UD PRN Administration SALINE FLUSH Temazepam 15 mg 05/08/24 15:00 Temazepam 15 Mg Capsule PO QHS PRN PRN INSOMNIA PFSH Medical History Chronic pain Smoker HTN (hypertension) HLD (hyperlipidemia) Osteoporosis Home Medications ?Medication ?Instructions ?Recorded ?Last Taken ?Type atorvastatin 10 mg tablet 10 mg PO QHS 08/25/21 04/24/24 History omeprazole 20 mg capsule,delayed 20 mg PO DAILY 09/01/21 04/24/24 History release oxycodone-acetaminophen 7.5 mg-325 1 tab PO Q6H PRN Pain 09/01/21 04/24/24 History mg tablet amitriptyline 25 mg tablet 25 mg PO QHS 04/16/24 04/24/24 History ergocalciferol (vitamin D2) 1,250 1,250 mcg PO TU 04/16/24 04/23/24 History mcg (50,000 unit) capsule gabapentin 300 mg capsule 300 mg PO 4X/DAY 04/16/24 04/24/24 History Allergy/AdvReac Type Severity Reaction Status Date / Time acetaminophen (From Vicodin) Allergy PALPITATION Verified 04/25/24 10:45 S codeine Allergy PALPITATION Verified 04/25/24 10:45 S hydrocodone (From Vicodin) Allergy PALPITATION Verified 04/25/24 10:45 S Surgical History History of cholecystectomy History of left nephrectomy History of appendectomy History of tonsillectomy History of hysterectomy Social History Smoking Status: Current every day smoker tobacco type: cigarettes Review of Systems (Anesthesia) ROS Narrative System reviewed and no additional complaints, except as documented.
[2024-05-10] MEDS: Cefazolin 2 GM in 0.9% Normal Saline (100mL Bag) 100 ML IV (13:31)
--- NOTE | 2024-05-10 13:45 | RAD_ITS ---
CLINICAL HISTORY: Female, 74 years old. Kyphoplasty. PROCEDURE: VERTEBROPLASTY - T12 vertebrae. FLUOROSCOPY TIME (if supplied): (2 minutes and 4 seconds) minutes/seconds. 39.41 mCi TECHNIQUE: (All elements of maximal sterile barrier technique followed, including US elements as applicable) RAD/Spine 1 View Any Level IMPRESSION: Intraoperative imaging provided for kyphoplasty of the T12 vertebrae. Electronically Signed: Rnee Talbert MD at 15:07 EDT ,
[2024-05-10] MEDS: Bupivacaine Mpf 0.5% 30 ML VIAL (14:20)
--- NOTE | 2024-05-10 14:48 | PCM.POST.ANE ---
Anesthesia: Postop Eval I Current Vital Signs Temperature: 97.5 F Pulse Rate: 78 Blood Pressure: 143/79 Respiratory Rate: 16 Pulse Ox: 97 Oxygen Delivery Method: Room Air Assessment Airway patent: Yes Spontaneous unlabored respirations: Yes Mental status: Awake and Calm nausea: No Vomiting: No Anesthesia Complication: No Fluid Hydration Crystalloid volume administer (ml): 700 Total IV fluid infused: 700 Progress Note Anesthesia document: Postop Eval 1 completed: Yes
--- NOTE | 2024-05-10 14:50 | POSTOPAN2_ITS ---
Anesthesia Postop Eval I Sum Postop Eval Completion status Anesthesia document: Postop Eval 1 completed: Yes Anesthesia Postop Eval I Summary Anesthesia Postop Eval I Summary: Anesthesia Postop Eval I: Assessment Summary Airway patent Yes 05/10/24 14:50 EVALUATION SPECIALIST.MDOT Spontaneous unlabored Yes 05/10/24 14:50 EVALUATION SPECIALIST.MDOT respirations Mental status Awake,Calm 05/10/24 14:50 EVALUATION SPECIALIST.MDOT nausea No 05/10/24 14:50 EVALUATION SPECIALIST.MDOT Vomiting No 05/10/24 14:50 EVALUATION SPECIALIST.MDOT Anesthesia Postop Eval I: Fluid Summary Crystalloid volume administer 700 05/10/24 14:50 EVALUATION SPECIALIST.MDOT (ml) Colloids volume administered ( ml) Blood Product volume administered (ml) Total IV fluid infused 700 05/10/24 14:50 EVALUATION SPECIALIST.MDOT Anesthesia Postop Eval I: Summary Notes Anesthesia Complication No 05/10/24 14:50 EVALUATION SPECIALIST.MDOT Anesthesia Complication Comment: Post-operative progress note Anesthesia: Postop Eval II Evaluation Mental status: Awake and Calm Pain Level: 1 nausea: No Vomiting: No Complications Anesthesia Complication: No
--- NOTE | 2024-05-10 14:50 | PCM.POSTANE2 ---
Anesthesia Postop Eval I Sum Postop Eval Completion status Anesthesia document: Postop Eval 1 completed: Yes Anesthesia Postop Eval I Summary Anesthesia Postop Eval I Summary: Anesthesia Postop Eval I: Assessment Summary Airway patent Yes 05/10/24 14:50 WET PROCESS HEAD MILLER.[email or web address] Spontaneous unlabored Yes 05/10/24 14:50 WET PROCESS HEAD MILLER.MDOT respirations Mental status Awake,Calm 05/10/24 14:50 WET PROCESS HEAD MILLER.MDOT nausea No 05/10/24 14:50 WET PROCESS HEAD MILLER.MDOT Vomiting No 05/10/24 14:50 WET PROCESS HEAD MILLER.MDOT Anesthesia Postop Eval I: Fluid Summary Crystalloid volume administer 700 05/10/24 14:50 WET PROCESS HEAD MILLER.MDOT (ml) Colloids volume administered ( ml) Blood Product volume administered (ml) Total IV fluid infused 700 05/10/24 14:50 WET PROCESS HEAD MILLER.MDOT Anesthesia Postop Eval I: Summary Notes Anesthesia Complication No 05/10/24 14:50 WET PROCESS HEAD MILLER.MDOT Anesthesia Complication Comment: Post-operative progress note Anesthesia: Postop Eval II Evaluation Mental status: Awake and Calm Pain Level: 1 nausea: No Vomiting: No Complications Anesthesia Complication: No
[2024-05-10] MEDS: Gabapentin 300 MG Capsule PO ×2 (18:32→21:34)
[2024-05-10] MEDS: oxyCODONE 5 MG Tablet PO (18:32)
--- NOTE | 2024-05-10 18:59 | OP.PCM_ITS ---
Problems Associated Problem List Diagnoses (1) Age-related osteoporosis with current pathol fracture of vertebra: Report of Operation Date of Procedure: 05/10/24 Pre-Operative Diagnosis: T12 compression fracture Post-Operative Diagnosis: T12 compression fracture Surgery/Procedure Performed:: T12 kyphoplasty Surgeon: Bear Puentes Type of Anesthesia: MAC Specimen's removed: none Drains: none Estimated Blood Loss (mL): minimal Description of Procedure: INFORMED CONSENT: The procedure, risks, benefits and options were discussed with the patient (including discussion of cement leakage, neurological injury and as potential though uncommon possible side effects). There are no contraindications to the procedure. The patient expressed understanding and agreed to proceed.? PROCEDURE TECHNIQUE: The patient was brought into the OR and placed prone on the table and time out performed. Vital signs were checked and the patient was moved to the procedure area. Standard monitors were applied. Sterile prep and drape was performed in a regular manner. Under fluoroscopy guidance utilizing AP lateral and oblique view as required, the T12 level was identified. Following, local anesthesia was administered the trochar needle was advanced utilizing the right transpedicular approach into the T12 vertebral body. A drill was advanced into the vertebral body to make space for the balloon. THe same was then performed on the left side. The kyphoplasty balloon was introduced through the trochar and inflation of the balloon was up to 150 PSI at the level on the right side, the cavity was created and the balloon was removed intact. The kyphoplasty balloon was then introduced through the left needle and inflation of the balloon was up to 150 PSI and the cavity was created and the balloon was removed intact. The cement mixture was prepared and injected through each respective side, about 1-1.5 ml was injected on each respective side under fluroscopic guidance to assess for any leakage. No significant leakage was noted. The needles were then removed intact. The patient tolerated the procedure well, there were no clinical complications and the neurological exam was normal. The patient was cleansed and steristrips with tegaderm was placed. Patient tolerated well.? Patient was given written discharge instructions. The patient is to return to the [facility]. She is to schedule a follow up with the Pain Management [place] after discharge. If she is home, she is to report Emergency Room with any symptoms of infection, bleeding shortness of breath, progressive weakness or any questions related to the procedure. She expressed understanding about the procedure and questions were answered. Complications None
[2024-05-10] MEDS: Atorvastatin Calcium 10 MG Tablet PO (21:34)
[2024-05-10] MEDS: Amitriptyline 25 MG Tablet PO (21:34)
[2024-05-11] MEDS: oxyCODONE 5 MG Tablet PO (04:08)
[2024-05-11 04:16] VITALS: BP 122/70; PULSE 75; RESP 17; TEMP 36.6; O2SAT 97
[2024-05-11 06:24] LABS: Absolute Lymphocyte Count 4.34 X10^3/uL (0.83-4.51); Absolute Neutrophil Count 6.8 X10^3/uL (2.0-7.7); Basophil# 0.02 X10^3/uL; Basophil% 0.2 % (0-1); Eosinophils% 1.6 % (0-5); Hematocrit 35.2 % (37-47); Hemoglobin 11.1 g/dL (12.0-15.0); Lymphocyte # 4.34 X10^3/ul (0.83-4.51); Lymphocyte % 35.7 % (19-41); Mean Corp Hgb Conc 31.5 g/dL (32-36); Mean Corpuscular Hgb 30.6 pg (27.0-32.0); Mean Platelet Vol. 10.2 fl (6.2-12.0); Monocyte# 0.73 X10^3/uL; NRBC Flagged by Analyzer 0 % (0-5); Neutrophil # 6.84 X10^3/uL (2.7-7.7); Neutrophil % 56.2 % (47-70); Platelet Count 376 K/mm3 (150-450); RBC Distribution Width CV 14.6 % (11.6-14.6); RBC Distribution Width SD 52.3 fl (35.1-43.9); Red Blood Count 3.63 M/mm3 (4.2-5.4); White Blood Count 12.2 K/mm3 (4.4-11.0)
[2024-05-11 06:40] LABS: Anion Gap 4 (5-15); BUN 17 mg/dL (7-18); Calcium,Total 9.2 mg/dL (8.5-10.1); Chloride 108 mmol/L (98-107); Creatinine, Serum 0.85 mg/dL (0.55-1.02); EST Glomerular Filtration Rate 70 mL/min (>60); Est Glom Filt Rate - Afr Amer 84 mL/min (>60); Estimated Creatinine Clearance 46.75 ml/min; Glucose 94 mg/dL (74-106); Magnesium 1.8 mg/dL (1.6-2.6); Phosphorus 3.6 mg/dL (2.5-4.9); Potassium 4.2 mmol/L (3.5-5.1); Sodium Level 139 mmol/L (136-145)
--- NOTE | 2024-05-11 07:04 | PN.HOSP_ITS ---
Reason for Visit Reason for Visit: Diagnoses Age-related osteoporosis with current pathological fracture, unspecified site, initial encounter for fracture (05/08/24) Age-related osteoporosis with current pathological fracture, vertebra(e), initial encounter for fracture (05/08/24) Subjective Subjective Patient underwent T12 kyphoplasty on 05/10/2024 Objective Data Objective Data Vital Signs: Vital Signs Temp Pulse Resp BP Pulse Ox O2 Del Method 97.9 F 75 17 122/70 H 97 Room Air 05/11/24 04:16 05/11/24 04:16 05/11/24 04:16 05/11/24 04:16 05/11/24 04:16 05/11/24 04:16 Oxygen Delivery Method Room Air Weight: 55.5 kg Body Mass Index (BMI) 24.7 Intake & Output: Intake and Output for Last 24 Hours 05/09/24 05/10/24 05/11/24 23:59 23:59 23:59 Intake Total 1300 / 1300 1390 / 1390 120 / 120 Balance 1300 / 1300 1390 / 1390 120 / 120 Lab / Micro Data 05/11/24 05:54 05/11/24 05:54 Labs: Laboratory Results - last 24 hr 05/11/24 05:54: WBC 12.2 H, RBC 3.63 L, Hgb 11.1 L, Hct 35.2 L, MCV 97.0, MCH 30.6, MCHC 31.5 L, RDW Std Deviation 52.3 H, RDW Coeff of Ema 14.6, Plt Count 376, MPV 10.2, Immature Gran % (Auto) 0.300, Neut % (Auto) 56.2, Lymph % (Auto) 35.7, [place] % (Auto) 6.0, Eos % (Auto) 1.6, Baso % (Auto) 0.2, Absolute Neuts (auto) 6.8, Absolute Lymphs (auto) 4.34, Nucleated RBC % 0, Sodium 139, Potassium 4.2, Chloride 108 H, Carbon Dioxide 27.0, Anion Gap 4 L, BUN 17, Creatinine 0.85, Estim Creat Clear Calc 46.75, Est GFR (MDRD) Af Amer 84, Est GFR (MDRD) Non-Af 70, BUN/Creatinine Ratio 20.0, Glucose 94, Calcium 9.2, Phosphorus 3.6, Magnesium 1.8 Radiography Diagnostic Testing: Radiology Impression Spine X-Ray 05/10/24 13:45 IMPRESSION: Intraoperative imaging provided for kyphoplasty of the T12 vertebrae. Electronically Signed: Rene Talbert MD at 15:07 EDT , Physical Exam Narrative GENERAL: cooperative HEENT: Atraumatic; normocephalic EYES; Anicteric, Normal Conjunctiva NECK; supple, normal thyroid, RESPIRATORY: Diminished to auscultation CARDIOVASCULAR: Regular S1 S2, GI: soft, normoactive bowel sounds, : No Renal angle tenderness; EXTREMITIES: No edema, no clubbing, MUSCULOSKELETAL: no muscle wasting NEURO: Awake; no lateralizing signs. SKIN: No Rash PSYCH; Flat affect Assessment & Plan Assessment/Plan (1) Age-related osteoporosis with current pathol fracture of vertebra: QUALIFIERS: Encounter type: initial encounter Qualified Code(s): M80.08XA - Age-related osteoporosis with current pathological fracture, vertebra(e), initial encounter for fracture PLAN: Plan Patient is a 75-year-old female admitted with T12 compression fracture. Patient symptoms began 2 weeks ago and had apparently failed outpatient treatment admitted for kyphoplasty 1. Acute T12 compression fracture -due to osteoporosis with failed outpatient treatment-treatment initiated IV corticosteroids, IV narcotics as needed for pain control, OxyContin for long- term pain control and oral oxycodone as needed, plan is for patient to undergo kyphoplasty on 05/10/2024 -05/11/2024;Patient underwent T12 kyphoplasty on 05/10/2024 2. Degenerative joint disease of the lumbar spine ? Complicating care 3. Dyslipidemia -Patient is on statin therapy, continued at home dose 4. GERD ? On PPI 5. DVT prophylaxis ? Bilateral SCDs for now Time spent in the patient's overall evaluation,decision-making process, review of diagnostic data, adjustment of management, discussion with other providers, nursing nursing and ancillary staff involved in patient's care documentation, 36 minutes
--- NOTE | 2024-05-11 09:03 | DS.PCM_ITS ---
Providers Date of Admission: 05/08/24 Date of Discharge: 05/11/24 Primary Care Physician: Dr. Bart Waters MD Consultations 05/08/24 15:00 Consult: Pain Management Routine Consulting Provider: Lisa Gallego Reason for Consult: Compression fracture T12 EMERGENT Consult: No MD Notified: Yes Date Notified: 05/08/24 Time Notified: 13:50 Method of Notification: Verbal Reason For Visit: COMPRESSION FRACTURES Diagnosis Discharge Diagnosis (1) Age-related osteoporosis with current pathol fracture of vertebra: Status: Acute Code(s): M80.08XA - Age-related osteoporosis with current pathological fracture, vertebra(e), initial encounter for fracture Qualifiers: Encounter type: initial encounter Qualified Code(s): M80.08XA - Age- related osteoporosis with current pathological fracture, vertebra(e), initial encounter for fracture Plan Patient is a 75-year-old female admitted with T12 compression fracture. Patient symptoms began 2 weeks ago and had apparently failed outpatient treatment admitted for kyphoplasty 1. Acute T12 compression fracture -due to osteoporosis with failed outpatient treatment-treatment initiated IV corticosteroids, IV narcotics as needed for pain control, OxyContin for long- term pain control and oral oxycodone as needed, plan is for patient to undergo kyphoplasty on 05/10/2024 -05/11/2024;Patient underwent T12 kyphoplasty on 05/10/2024 2. Degenerative joint disease of the lumbar spine ? Complicating care 3. Dyslipidemia -Patient is on statin therapy, continued at home dose 4. GERD ? On PPI 5. DVT prophylaxis ? Bilateral SCDs for now Time spent in the patient's overall evaluation,decision-making process, review of diagnostic data, adjustment of management, discussion with other providers, nursing nursing and ancillary staff involved in patient's care documentation, 36 minutes Medications at Discharge Home Medications atorvastatin 10 mg tablet 10 mg PO QHS 08/25/21 omeprazole 20 mg capsule,delayed release 20 mg PO DAILY 09/01/21 oxycodone-acetaminophen 7.5 mg-325 mg tablet 1 tab PO Q6H PRN Pain 09/01/21 amitriptyline 25 mg tablet 25 mg PO QHS 04/16/24 ergocalciferol (vitamin D2) 1,250 mcg (50,000 unit) capsule 1,250 mcg PO TU 07/09/24 gabapentin 300 mg capsule 300 mg PO 4X/DAY 04/16/24 Physical Exam Narrative GENERAL: cooperative HEENT: Atraumatic; normocephalic EYES; Anicteric, Normal Conjunctiva NECK; supple, normal thyroid, RESPIRATORY: Diminished to auscultation CARDIOVASCULAR: Regular S1 S2, GI: soft, normoactive bowel sounds, : No Renal angle tenderness; EXTREMITIES: No edema, no clubbing, MUSCULOSKELETAL: no muscle wasting NEURO: Awake; no lateralizing signs. SKIN: No Rash PSYCH; Flat affect Weight / BMI Weight Weight: 55.5 kg Body Mass Index (BMI) 24.7 ABG / Lab / Microbiology Data 05/11/24 05:54 05/11/24 05:54 Laboratory: Laboratory Results - last 24 hr 05/11/24 05:54: WBC 12.2 H, RBC 3.63 L, Hgb 11.1 L, Hct 35.2 L, MCV 97.0, MCH 30.6, MCHC 31.5 L, RDW Std Deviation 52.3 H, RDW Coeff of Ema 14.6, Plt Count 376, MPV 10.2, Immature Gran % (Auto) 0.300, Neut % (Auto) 56.2, Lymph % (Auto) 35.7, [place] % (Auto) 6.0, Eos % (Auto) 1.6, Baso % (Auto) 0.2, Absolute Neuts (auto) 6.8, Absolute Lymphs (auto) 4.34, Nucleated RBC % 0, Sodium 139, Potassium 4.2, Chloride 108 H, Carbon Dioxide 27.0, Anion Gap 4 L, BUN 17, Creatinine 0.85, Estim Creat Clear Calc 46.75, Est GFR (MDRD) Af Amer 84, Est GFR (MDRD) Non-Af 70, BUN/Creatinine Ratio 20.0, Glucose 94, Calcium 9.2, Phosphorus 3.6, Magnesium 1.8 Radiography Diagnostic Testing: Radiology Impression Spine X-Ray 05/10/24 13:45 IMPRESSION: Intraoperative imaging provided for kyphoplasty of the T12 vertebrae. Electronically Signed: Rene Talbert MD at 15:07 EDT , D/C Instructions Discharge Diet: No restrictions Discharge Activity: Return to Normal Activity Call your doctor if you observe: Fever of 101 or Higher, Shortness of breath, Fainting spells and Chest pain Meaningful Use Info Meaningful Use Meaningful Use Diagnoses (Choose all that apply): None applicable Ischemic Stroke Statin Dosing Therapy Reference: STATIN DOSE THERAPY REFERENCE: * Patients > 75 years receive moderate or high dose statin therapy. * Patients 75 years or YOUNGER should receive HIGH intensity statin dose unless contraindicated. You will be required to document reason for non-treatment if statin daily dose does not meet guidelines. HIGH DOSE STATIN THERAPY DAILY Atorvastatin > than or = to 40 mg Rosuvastatin > than or = to 20 mg Amlodipine + Atorvastatin > than or = to 2.5/40 mg Ezetimibe + Simvastatin 10/80 mg Simvastatin 80mg Discharge Plan Admission Admit Date/Time: 05/08/24 13:46 Attending Provider: Jose Lopez Primary Care Provider: Bart Waters Consulting Providers: Lisa Gallego; Lukasz Jay Discharge Orders/Prescriptions Prescriptions: Continued atorvastatin 10 mg tablet 10 mg PO QHS omeprazole 20 mg capsule,delayed release(DR/EC) 20 mg PO DAILY oxycodone-acetaminophen 7.5-325 mg tablet 1 tab PO Q6H PRN (Reason: Pain) Patient Comments: 3-4 TIMES PER DAY amitriptyline 25 mg tablet 25 mg PO QHS gabapentin 300 mg capsule 300 mg PO 4X/DAY Patient Comments: PT STATES SHE TAKES 3 TIMES PER DAY ergocalciferol (vitamin D2) 1,250 mcg (50,000 unit) capsule 1,250 mcg PO TU Referrals / Follow Up: Lisa Gallego MD [Med Staff - Active Staff] - Within 2 Weeks Bart Waters MD [Primary Care Provider] - Within 2 Weeks Disposition Disposition (needs filled in before D/C Order can be placed): Home, Self Care Charges/Coding Visit Charges Inpatient E&M: 74420 Disch Hosp >30min
[2024-05-11] MEDS: oxyCODONE HCl Cr 10 MG Tablet 20 MG PO (09:20)
[2024-05-11] MEDS: Gabapentin 300 MG Capsule PO (09:20)
[2024-05-11] MEDS: Pantoprazole Sodium 20 MG Tablet PO (09:20)
[2024-05-11 09:23] VITALS: BP 123/79; PULSE 78; RESP 18; TEMP 36.6; O2SAT 97
== END 2024-05-11 10:09 | disposition home or self-care (01) | DRG 517 ==
LOC: ED 13:21 → MS3 13:26
PROVIDERS: Anesthesiology; Admitting Provider Internal Medicine; Emergency Provider Emergency Medicine; PCP Family Medicine; Visit Provider Internal Medicine
PROC: 0PS43ZZ Reposition Thoracic Vertebra, Percutaneous Approach (ICD-10-PCS; principal; 2024-05-10 12:45)
DX: M80.08XA Age-related osteoporosis with current pathological fracture, vertebra(e), initial encounter for fracture (principal); E78.5 Hyperlipidemia, unspecified; I10 Essential (primary) hypertension; K21.9 Gastro-esophageal reflux disease without esophagitis; F17.210 Nicotine dependence, cigarettes, uncomplicated; M47.816 Spondylosis without myelopathy or radiculopathy, lumbar region; R53.81 Other malaise; G89.29 Other chronic pain; Z79.891 Long term (current) use of opiate analgesic; Z90.49 Acquired absence of other specified parts of digestive tract; Z90.710 Acquired absence of both cervix and uterus
CPT/HCPCS: 36415; 72020; 76000; 80048; 81001; 83735; 84100; 85025; 93005; 97162; 97165; 99284; 99406; J7030; A4216; J2405

== ENCOUNTER → 2024-07-18 | Outpatient (CLI) | payer MEDICARE, SELFPAY ==
[2024-07-18 17:05] LABS: Amphetamine Urine VISTA NEGATIVE (<1000 ng/mL); Barbiturate Urine VISTA NEGATIVE (< 200 ng/mL); Benzodiazepine Urine VISTA NEGATIVE (< 200 ng/mL); Cocaine Urine VISTA NEGATIVE (< 300 ng/mL); Ecstacy Urine VISTA NEGATIVE (< 500 ng/mL); Methadone Urine VISTA NEGATIVE (< 300 ng/mL); PCP Urine VISTA NEGATIVE (< 25 ng/mL); THC Urine VISTA NEGATIVE (< 50 ng/mL); Vista UDS pH Range 5
== END | disposition home or self-care (01) ==
LOC: LAB 16:25
PROVIDERS: PCP Family Medicine; Referring Provider Anesthesiology Pain Medicine; Visit Provider Anesthesiology Pain Medicine
DX: F11.20 Opioid dependence, uncomplicated (principal)
CPT/HCPCS: 80307

== ENCOUNTER → 2025-01-28 | Outpatient (CLI) | payer MEDICARE, SELFPAY ==
[2025-01-28 14:41] LABS: Amphetamine Urine NEGATIVE (<1000 ng/mL); Barbiturate Urine NEGATIVE (< 200 ng/mL); Benzodiazepine Urine NEGATIVE (< 200 ng/mL); Buprenorphine Urine NEGATIVE (< 200 ng/mL); Cocaine Urine NEGATIVE (< 300 ng/mL); Fentanyl, Urine NEGATIVE; Methadone Urine NEGATIVE (< 300 ng/mL); Opiates Urine NEGATIVE (< 300 ng/mL); Oxycodone, Urine PRESUMPTIVE POSITIVE (< 100 ng/mL); PCP Urine NEGATIVE (< 25 ng/mL); THC Urine NEGATIVE (< 50 ng/mL)
== END | disposition home or self-care (01) ==
LOC: LAB 12:40
PROVIDERS: PCP Family Medicine; Referring Provider Anesthesiology Pain Medicine; Visit Provider Anesthesiology Pain Medicine
DX: F11.20 Opioid dependence, uncomplicated (principal)
CPT/HCPCS: 80307

== ENCOUNTER → 2025-09-09 | Outpatient (CLI) | payer MEDICARE, SELFPAY ==
[2025-09-09 12:41] LABS: Barbiturate Urine NEGATIVE (< 200 ng/mL); Benzodiazepine Urine NEGATIVE (< 200 ng/mL); PCP Urine NEGATIVE (< 25 ng/mL); THC Urine NEGATIVE (< 50 ng/mL)
== END | disposition home or self-care (01) ==
PROVIDERS: PCP Family Medicine; Referring Provider Anesthesiology Pain Medicine; Visit Provider Anesthesiology Pain Medicine
DX: F11.20 Opioid dependence, uncomplicated (principal)
CPT/HCPCS: 80307